=== PATIENT | male | born 1945 | race Caucasian/White ===

== ENCOUNTER 2018-03-03 22:14 | Inpatient (IN) ==
[2018-03-03] MEDS ORDERED: Pantoprazole Inj 40 MG Vial IV.PUSH ONE (23:02)
--- NOTE | 2018-03-03 23:03 | ED ---
HPI General Chief complaint: GI Bleed Stated complaint: Bloody Stool Time Seen by Provider: 03/03/18 22:57 History of Present Illness HPI Narrative: Patient is a 72-year-old male who suddenly today at 2 pm had a episode of dark melenic melena he says he felt abnormal in his upper GI area but no pain specifically a feeling of being too full. He has a history of renal failure in the past and he has needed Epogen shots as well as being transfused in the past due to low red cell production. Now he is recovered his kidney is no longer need erythropoietin to make red blood cells he is never had an endoscopy or he has had colonoscopies in the past that have a biopsy polyps that have been negative according to . He has not had a recent colonoscopy and he has no other complaints and never had rectal bleeding before in his life Protonix 40 IV push is given fluid he has a history of CHF he is on Lasix fluid recess is not appropriate for this patient this time and I would likely go to packed red blood cells sooner than later his initial H&H is 02/22 Related Data Home Medications Medication Instructions Recorded Confirmed apixaban [Eliquis] 5 mg PO BID 03/03/18 03/03/18 atorvastatin 40 mg PO DAILY 03/03/18 03/03/18 calcium carbonate-vitamin D3 600 mg PO DAILY 03/03/18 03/03/18 [Calcium 600 + D(3)] carvedilol [Coreg] 25 mg PO BID 03/03/18 03/03/18 clopidogrel [Plavix] 75 mg PO DAILY 03/03/18 03/03/18 gabapentin 300 mg PO TID 03/03/18 03/03/18 insulin aspart U-100 [Novolog 20 unit SUBCUT DAILY 03/03/18 03/03/18 U-100 Insulin aspart] insulin detemir U-100 [Levemir 70 unit SUBCUT TID 03/03/18 03/03/18 U-100 Insulin] magnesium oxide 400 mg PO BID 03/03/18 03/03/18 multivitamin 1 tab PO DAILY 03/03/18 03/03/18 omega 0-lta-cvr-fish oil [Fish Oil] 1,000 mg PO DAILY 03/03/18 03/03/18 potassium chloride 20 meq PO DAILY 10/06/18 10/06/18 Previous Rx's Medication Instructions Recorded furosemide [Lasix] 40 mg PO DAILY #30 tab 03/07/18 pantoprazole [Protonix] 40 mg PO BID #60 tab 03/07/18 sucralfate [Carafate] 1 g PO Q6H #120 tab 03/07/18 Allergies Allergy/AdvReac Type Severity Reaction Status Date / Time Penicillins Allergy unknown Verified 03/03/18 22:37 Review of Systems ROS: all other systems reviewed are negative Gastrointestinal Reports melena PMFSH Social History Social History Substance History: No History of Abuse Second Hand Smoke Exposure: No Smoking Status: Former smoker Tobacco Type: Cigarettes How Often Do You Have a Drink Containing Alcohol: Monthly or less Recent Travel in [facility] within the Last 8 Weeks: No Recent Out of Country Travel within the Last 8 Weeks: No Immunization History Tetanus Immunization: <5 Years Exam Narrative Exam Narrative: GENERAL: pt appears pale yellowish slightly diaphoretic SKIN: Warm and dry. slight pale diaphoretic HEAD: Atraumatic. Normocephalic. EYES: Pupils equal and round. No scleral icterus. No injection or drainage. ENT: No nasal bleeding or discharge. Mucous membranes pink and moist. NECK: Trachea midline. No JVD. CARDIOVASCULAR: Regular rate and rhythm. RESPIRATORY: No accessory muscle use. Clear to auscultation. Breath sounds equal bilaterally. GASTROINTESTINAL: Abdomen mild obese abdo no pain in epigasrum area ..., Hepatic and splenic margins not palpable. MUSCULOSKELETAL: Extremities without clubbing, cyanosis, or edema. No obvious deformities. NEUROLOGICAL: Awake and alert. No obvious cranial nerve deficits. Motor grossly within normal limits. Five out of 5 muscle strength in the arms and legs. Normal speech. PSYCHIATRIC: Appropriate mood and affect; insight and judgment normal. Course Initial Documented Vital Signs Temperature 98.0 F 03/03/18 22:24 Pulse Rate 80 03/03/18 22:24 Respiratory Rate 16 03/03/18 22:24 Blood Pressure 95/53 L 03/03/18 22:24 Pulse Oximetry 97 03/03/18 22:24 Last Documented Vital Signs Temperature 98.1 F 03/07/18 07:00 Pulse Rate 80 03/07/18 10:00 Respiratory Rate 18 03/07/18 10:00 Blood Pressure 145/68 H 03/07/18 10:00 Pulse Oximetry 98 03/07/18 10:00 Critical Care Time Critical Care Time: Yes Total Critical Care Time: 30 Attestation: blood and fluid resustiation and ICU admit CI consult spoke to ICU attending CHELY of GI hemorrhage Medical Decision Making MDM Narrative Medical decision making narrative: pt has 3 episodes of melena in ER and then after 500cc fluid still became HYPOTENSIVE DIAPHORETIC and then slightly altered . I decide to empirically treat ewith a UNIT of [facility] even though first Hgb was 9 , I feel too much NS with his CHF history it would be better to go to [facility] sooner. admit for GI intervention ICU Dr Zaragoza Medical Screen Exam Complete: Yes Emergency Medical Condition: Yes Differential Diagnosis Differential Diagnosis: GI bleed rapid transit upper gi bleed vs colonic polyp bleed vs AV malformation vs diverticular bleed PUD bleed other coagulpathy other Lab Data Result diagrams: 03/07/18 05:42 03/07/18 05:42 Lab Results 03/03/18 03/03/18 03/03/18 Range/Units 23:20 23:20 23:20 CBC w Diff Auto diff final WBC 8.7 (4.0-11.0) th/mm3 RBC 3.53 L (4.50-5.90) mil/mm3 Hgb 9.5 L (13.0-17.0) gm/dL Hct 27.8 L (39.0-51.0) % MCV 78.7 L (80.0-100.0) fL MCH 26.8 L (27.0-34.0) pg MCHC 34.1 (32.0-36.0) % RDW 14.0 (11.6-17.2) % Plt Count 158 (150-450) th/mm3 MPV 9.1 (7.0-11.0) fL Prelim Diff (Auto) Neut % (Auto) 82.3 H (16.0-70.0) % Lymph % (Auto) 7.6 L (9.0-44.0) % [place] % (Auto) 6.3 (0.0-8.0) % Eos % (Auto) 3.6 (0.0-4.0) % Baso % (Auto) 0.2 (0.0-2.0) % Neut # (Auto) 7.2 (1.8-7.7) th/mm3 Lymph # (Auto) 0.7 L (1.0-4.8) th/mm3 [place] # (Auto) 0.5 (0.0-0.9) th/mm3 Eos # (Auto) 0.3 (0.0-0.4) th/mm3 Baso # (Auto) 0.0 (0.0-0.2) th/mm3 WBC Differential . Diff Scan Differential Comment . Platelet Estimate (Normal) Platelet Morphology (Normal) Ovalocytes (None) PT (9.8-11.6) sec INR Ratio APTT (24.3-30.1) sec Fibrinogen (227-377) mg/dL Sodium 140 (136-145) meq/L Potassium 4.9 (3.5-5.1) meq/L Chloride 106 (98-107) meq/L Carbon Dioxide 25.8 (21.0-32.0) meq/L Anion Gap 8 (5-15) meq/L BUN 54 H (7-18) mg/dL Creatinine 1.70 H (0.60-1.30) mg/dL Estimated GFR 40 L (>89) mL/min POC Glucose (68-110) mg/dl Random Glucose 90 (74-106) mg/dL Lactic Acid (0.4-2.0) mmol/L Calcium 8.9 (8.5-10.1) mg/dL Magnesium (1.5-2.5) mg/dL Total Bilirubin 0.5 (0.2-1.0) mg/dL AST 29 (15-37) U/L ALT 34 (12-78) U/L Alkaline Phosphatase 66 (45-117) U/L Total Protein 6.3 L (6.4-8.2) g/dL Albumin 3.1 L (3.4-5.0) g/dL Nasal Screen MRSA (PCR) (Negative) Blood Type A Positive Blood Type Recheck Required Antibody Screen Negative MTS Gel Crossmatch 03/04/18 03/04/18 03/04/18 Range/Units 00:50 01:25 05:16 CBC w Diff Auto diff final WBC 9.2 7.0 (4.0-11.0) th/mm3 RBC 3.74 L 3.16 L (4.50-5.90) mil/mm3 Hgb 9.5 L 8.5 L (13.0-17.0) gm/dL Hct 29.9 L 25.1 L (39.0-51.0) % MCV 79.9 L 79.6 L (80.0-100.0) fL MCH 25.5 L 27.0 (27.0-34.0) pg MCHC 31.9 L 33.9 (32.0-36.0) % RDW 13.3 13.9 (11.6-17.2) % Plt Count 179 123 L D (150-450) th/mm3 MPV 8.8 9.6 (7.0-11.0) fL Prelim Diff (Auto) Neut % (Auto) 79.9 H (16.0-70.0) % Lymph % (Auto) 9.6 (9.0-44.0) % [place] % (Auto) 6.7 (0.0-8.0) % Eos % (Auto) 3.5 (0.0-4.0) % Baso % (Auto) 0.3 (0.0-2.0) % Neut # (Auto) 7.4 (1.8-7.7) th/mm3 Lymph # (Auto) 0.9 L (1.0-4.8) th/mm3 [place] # (Auto) 0.6 (0.0-0.9) th/mm3 Eos # (Auto) 0.3 (0.0-0.4) th/mm3 Baso # (Auto) 0.0 (0.0-0.2) th/mm3 WBC Differential . Diff Scan Differential Comment . Platelet Estimate (Normal) Platelet Morphology (Normal) Ovalocytes (None) PT (9.8-11.6) sec INR Ratio APTT (24.3-30.1) sec Fibrinogen (227-377) mg/dL Sodium (136-145) meq/L Potassium (3.5-5.1) meq/L Chloride (98-107) meq/L Carbon Dioxide (21.0-32.0) meq/L Anion Gap (5-15) meq/L BUN (7-18) mg/dL Creatinine (0.60-1.30) mg/dL Estimated GFR (>89) mL/min POC Glucose (68-110) mg/dl Random Glucose (74-106) mg/dL Lactic Acid (0.4-2.0) mmol/L Calcium (8.5-10.1) mg/dL Magnesium (1.5-2.5) mg/dL Total Bilirubin (0.2-1.0) mg/dL AST (15-37) U/L ALT (12-78) U/L Alkaline Phosphatase (45-117) U/L Total Protein (6.4-8.2) g/dL Albumin (3.4-5.0) g/dL Nasal Screen MRSA (PCR) (Negative) Blood Type Blood Type Recheck Antibody Screen MTS Gel Crossmatch See Detail 03/04/18 03/04/18 03/04/18 Range/Units 06:00 08:43 08:43 CBC w Diff WBC (4.0-11.0) th/mm3 RBC (4.50-5.90) mil/mm3 Hgb (13.0-17.0) gm/dL Hct (39.0-51.0) % MCV (80.0-100.0) fL MCH (27.0-34.0) pg MCHC (32.0-36.0) % RDW (11.6-17.2) % Plt Count (150-450) th/mm3 MPV (7.0-11.0) fL Prelim Diff (Auto) Neut % (Auto) (16.0-70.0) % Lymph % (Auto) (9.0-44.0) % [place] % (Auto) (0.0-8.0) % Eos % (Auto) (0.0-4.0) % Baso % (Auto) (0.0-2.0) % Neut # (Auto) (1.8-7.7) th/mm3 Lymph # (Auto) (1.0-4.8) th/mm3 [place] # (Auto) (0.0-0.9) th/mm3 Eos # (Auto) (0.0-0.4) th/mm3 Baso # (Auto) (0.0-0.2) th/mm3 WBC Differential Diff Scan Differential Comment Platelet Estimate (Normal) Platelet Morphology (Normal) Ovalocytes (None) PT 12.4 H (9.8-11.6) sec INR 1.2 Ratio APTT 26.4 (24.3-30.1) sec Fibrinogen 203 L (227-377) mg/dL Sodium (136-145) meq/L Potassium (3.5-5.1) meq/L Chloride (98-107) meq/L Carbon Dioxide (21.0-32.0) meq/L Anion Gap (5-15) meq/L BUN (7-18) mg/dL Creatinine (0.60-1.30) mg/dL Estimated GFR (>89) mL/min POC Glucose (68-110) mg/dl Random Glucose (74-106) mg/dL Lactic Acid 1.7 (0.4-2.0) mmol/L Calcium (8.5-10.1) mg/dL Magnesium (1.5-2.5) mg/dL Total Bilirubin (0.2-1.0) mg/dL AST (15-37) U/L ALT (12-78) U/L Alkaline Phosphatase (45-117) U/L Total Protein (6.4-8.2) g/dL Albumin (3.4-5.0) g/dL Nasal Screen MRSA (PCR) Not detected (Negative) Blood Type Blood Type Recheck Antibody Screen MTS Gel Crossmatch 03/04/18 03/04/18 03/04/18 Range/Units 08:45 11:52 13:17 CBC w Diff WBC (4.0-11.0) th/mm3 RBC (4.50-5.90) mil/mm3 Hgb 9.1 L (13.0-17.0) gm/dL Hct 27.6 L (39.0-51.0) % MCV (80.0-100.0) fL MCH (27.0-34.0) pg MCHC (32.0-36.0) % RDW (11.6-17.2) % Plt Count (150-450) th/mm3 MPV (7.0-11.0) fL Prelim Diff (Auto) Neut % (Auto) (16.0-70.0) % Lymph % (Auto) (9.0-44.0) % [place] % (Auto) (0.0-8.0) % Eos % (Auto) (0.0-4.0) % Baso % (Auto) (0.0-2.0) % Neut # (Auto) (1.8-7.7) th/mm3 Lymph # (Auto) (1.0-4.8) th/mm3 [place] # (Auto) (0.0-0.9) th/mm3 Eos # (Auto) (0.0-0.4) th/mm3 Baso # (Auto) (0.0-0.2) th/mm3 WBC Differential Diff Scan Differential Comment Platelet Estimate (Normal) Platelet Morphology (Normal) Ovalocytes (None) PT (9.8-11.6) sec INR Ratio APTT (24.3-30.1) sec Fibrinogen (227-377) mg/dL Sodium (136-145) meq/L Potassium (3.5-5.1) meq/L Chloride (98-107) meq/L Carbon Dioxide (21.0-32.0) meq/L Anion Gap (5-15) meq/L BUN (7-18) mg/dL Creatinine (0.60-1.30) mg/dL Estimated GFR (>89) mL/min POC Glucose 236 H (68-110) mg/dl Random Glucose (74-106) mg/dL Lactic Acid (0.4-2.0) mmol/L Calcium (8.5-10.1) mg/dL Magnesium (1.5-2.5) mg/dL Total Bilirubin (0.2-1.0) mg/dL AST (15-37) U/L ALT (12-78) U/L Alkaline Phosphatase (45-117) U/L Total Protein (6.4-8.2) g/dL Albumin (3.4-5.0) g/dL Nasal Screen MRSA (PCR) (Negative) Blood Type Blood Type Recheck Antibody Screen MTS Gel Crossmatch See Detail 03/04/18 03/04/18 03/04/18 Range/Units 17:43 17:44 23:19 CBC w Diff WBC (4.0-11.0) th/mm3 RBC (4.50-5.90) mil/mm3 Hgb 8.7 L 8.2 L (13.0-17.0) gm/dL Hct 26.0 L 25.3 L (39.0-51.0) % MCV (80.0-100.0) fL MCH (27.0-34.0) pg MCHC (32.0-36.0) % RDW (11.6-17.2) % Plt Count (150-450) th/mm3 MPV (7.0-11.0) fL Prelim Diff (Auto) Neut % (Auto) (16.0-70.0) % Lymph % (Auto) (9.0-44.0) % [place] % (Auto) (0.0-8.0) % Eos % (Auto) (0.0-4.0) % Baso % (Auto) (0.0-2.0) % Neut # (Auto) (1.8-7.7) th/mm3 Lymph # (Auto) (1.0-4.8) th/mm3 [place] # (Auto) (0.0-0.9) th/mm3 Eos # (Auto) (0.0-0.4) th/mm3 Baso # (Auto) (0.0-0.2) th/mm3 WBC Differential Diff Scan Differential Comment Platelet Estimate (Normal) Platelet Morphology (Normal) Ovalocytes (None) PT (9.8-11.6) sec INR Ratio APTT (24.3-30.1) sec Fibrinogen (227-377) mg/dL Sodium (136-145) meq/L Potassium (3.5-5.1) meq/L Chloride (98-107) meq/L Carbon Dioxide (21.0-32.0) meq/L Anion Gap (5-15) meq/L BUN (7-18) mg/dL Creatinine (0.60-1.30) mg/dL Estimated GFR (>89) mL/min POC Glucose 258 H (68-110) mg/dl Random Glucose (74-106) mg/dL Lactic Acid (0.4-2.0) mmol/L Calcium (8.5-10.1) mg/dL Magnesium (1.5-2.5) mg/dL Total Bilirubin (0.2-1.0) mg/dL AST (15-37) U/L ALT (12-78) U/L Alkaline Phosphatase (45-117) U/L Total Protein (6.4-8.2) g/dL Albumin (3.4-5.0) g/dL Nasal Screen MRSA (PCR) (Negative) Blood Type Blood Type Recheck Antibody Screen MTS Gel Crossmatch 03/05/18 03/05/18 03/05/18 Range/Units 00:11 05:38 08:47 CBC w Diff WBC 6.0 (4.0-11.0) th/mm3 RBC 2.98 L (4.50-5.90) mil/mm3 Hgb 8.0 L (13.0-17.0) gm/dL Hct 24.1 L (39.0-51.0) % MCV 80.8 (80.0-100.0) fL MCH 26.8 L (27.0-34.0) pg MCHC 33.2 (32.0-36.0) % RDW 14.6 (11.6-17.2) % Plt Count 96 L (150-450) th/mm3 MPV 8.5 (7.0-11.0) fL Prelim Diff (Auto) Slide review pending Neut % (Auto) 77.7 H (16.0-70.0) % Lymph % (Auto) 9.8 (9.0-44.0) % [place] % (Auto) 9.0 H (0.0-8.0) % Eos % (Auto) 3.0 (0.0-4.0) % Baso % (Auto) 0.5 (0.0-2.0) % Neut # (Auto) 4.7 (1.8-7.7) th/mm3 Lymph # (Auto) 0.6 L (1.0-4.8) th/mm3 [place] # (Auto) 0.5 (0.0-0.9) th/mm3 Eos # (Auto) 0.2 (0.0-0.4) th/mm3 Baso # (Auto) 0.0 (0.0-0.2) th/mm3 WBC Differential . Diff Scan Auto diff confirmed Differential Comment . Platelet Estimate Low L (Normal) Platelet Morphology Normal (Normal) Ovalocytes (None) PT (9.8-11.6) sec INR Ratio APTT (24.3-30.1) sec Fibrinogen (227-377) mg/dL Sodium (136-145) meq/L Potassium (3.5-5.1) meq/L Chloride (98-107) meq/L Carbon Dioxide (21.0-32.0) meq/L Anion Gap (5-15) meq/L BUN (7-18) mg/dL Creatinine (0.60-1.30) mg/dL Estimated GFR (>89) mL/min POC Glucose 274 H 279 H (68-110) mg/dl Random Glucose (74-106) mg/dL Lactic Acid (0.4-2.0) mmol/L Calcium (8.5-10.1) mg/dL Magnesium (1.5-2.5) mg/dL Total Bilirubin (0.2-1.0) mg/dL AST (15-37) U/L ALT (12-78) U/L Alkaline Phosphatase (45-117) U/L Total Protein (6.4-8.2) g/dL Albumin (3.4-5.0) g/dL Nasal Screen MRSA (PCR) (Negative) Blood Type Blood Type Recheck Antibody Screen MTS Gel Crossmatch 03/05/18 03/05/18 03/05/18 Range/Units 08:47 12:27 15:03 CBC w Diff WBC (4.0-11.0) th/mm3 RBC (4.50-5.90) mil/mm3 Hgb 7.9 L (13.0-17.0) gm/dL Hct 23.9 L (39.0-51.0) % MCV (80.0-100.0) fL MCH (27.0-34.0) pg MCHC (32.0-36.0) % RDW (11.6-17.2) % Plt Count (150-450) th/mm3 MPV (7.0-11.0) fL Prelim Diff (Auto) Neut % (Auto) (16.0-70.0) % Lymph % (Auto) (9.0-44.0) % [place] % (Auto) (0.0-8.0) % Eos % (Auto) (0.0-4.0) % Baso % (Auto) (0.0-2.0) % Neut # (Auto) (1.8-7.7) th/mm3 Lymph # (Auto) (1.0-4.8) th/mm3 [place] # (Auto) (0.0-0.9) th/mm3 Eos # (Auto) (0.0-0.4) th/mm3 Baso # (Auto) (0.0-0.2) th/mm3 WBC Differential Diff Scan Differential Comment Platelet Estimate (Normal) Platelet Morphology (Normal) Ovalocytes (None) PT (9.8-11.6) sec INR Ratio APTT (24.3-30.1) sec Fibrinogen (227-377) mg/dL Sodium 146 H (136-145) meq/L Potassium 4.4 (3.5-5.1) meq/L Chloride 112 H (98-107) meq/L Carbon Dioxide 23.9 (21.0-32.0) meq/L Anion Gap 10 (5-15) meq/L BUN 57 H (7-18) mg/dL Creatinine 1.42 H (0.60-1.30) mg/dL Estimated GFR 49 L (>89) mL/min POC Glucose 309 H (68-110) mg/dl Random Glucose 277 H D (74-106) mg/dL Lactic Acid (0.4-2.0) mmol/L Calcium 8.7 (8.5-10.1) mg/dL Magnesium 2.3 (1.5-2.5) mg/dL Total Bilirubin 1.0 (0.2-1.0) mg/dL AST 30 (15-37) U/L ALT 29 (12-78) U/L Alkaline Phosphatase 52 (45-117) U/L Total Protein 5.8 L (6.4-8.2) g/dL Albumin 2.8 L (3.4-5.0) g/dL Nasal Screen MRSA (PCR) (Negative) Blood Type Blood Type Recheck Antibody Screen MTS Gel Crossmatch 03/05/18 03/05/18 03/06/18 Range/Units 16:14 17:15 01:11 CBC w Diff WBC (4.0-11.0) th/mm3 RBC (4.50-5.90) mil/mm3 Hgb (13.0-17.0) gm/dL Hct (39.0-51.0) % MCV (80.0-100.0) fL MCH (27.0-34.0) pg MCHC (32.0-36.0) % RDW (11.6-17.2) % Plt Count (150-450) th/mm3 MPV (7.0-11.0) fL Prelim Diff (Auto) Neut % (Auto) (16.0-70.0) % Lymph % (Auto) (9.0-44.0) % [place] % (Auto) (0.0-8.0) % Eos % (Auto) (0.0-4.0) % Baso % (Auto) (0.0-2.0) % Neut # (Auto) (1.8-7.7) th/mm3 Lymph # (Auto) (1.0-4.8) th/mm3 [place] # (Auto) (0.0-0.9) th/mm3 Eos # (Auto) (0.0-0.4) th/mm3 Baso # (Auto) (0.0-0.2) th/mm3 WBC Differential Diff Scan Differential Comment Platelet Estimate (Normal) Platelet Morphology (Normal) Ovalocytes (None) PT (9.8-11.6) sec INR Ratio APTT (24.3-30.1) sec Fibrinogen (227-377) mg/dL Sodium (136-145) meq/L Potassium (3.5-5.1) meq/L Chloride (98-107) meq/L Carbon Dioxide (21.0-32.0) meq/L Anion Gap (5-15) meq/L BUN (7-18) mg/dL Creatinine (0.60-1.30) mg/dL Estimated GFR (>89) mL/min POC Glucose 283 H 272 H (68-110) mg/dl Random Glucose (74-106) mg/dL Lactic Acid (0.4-2.0) mmol/L Calcium (8.5-10.1) mg/dL Magnesium (1.5-2.5) mg/dL Total Bilirubin (0.2-1.0) mg/dL AST (15-37) U/L ALT (12-78) U/L Alkaline Phosphatase (45-117) U/L Total Protein (6.4-8.2) g/dL Albumin (3.4-5.0) g/dL Nasal Screen MRSA (PCR) (Negative) Blood Type Blood Type Recheck Antibody Screen MTS Gel Crossmatch See Detail 03/06/18 03/06/18 03/06/18 Range/Units 07:00 07:00 07:15 CBC w Diff WBC 3.5 L (4.0-11.0) th/mm3 RBC 3.11 L (4.50-5.90) mil/mm3 Hgb 8.4 L (13.0-17.0) gm/dL Hct 25.9 L (39.0-51.0) % MCV 83.1 (80.0-100.0) fL MCH 27.0 (27.0-34.0) pg MCHC 32.5 (32.0-36.0) % RDW 14.8 (11.6-17.2) % Plt Count 80 L (150-450) th/mm3 MPV 8.7 (7.0-11.0) fL Prelim Diff (Auto) Slide review pending Neut % (Auto) 69.2 (16.0-70.0) % Lymph % (Auto) 15.1 (9.0-44.0) % [place] % (Auto) 9.2 H (0.0-8.0) % Eos % (Auto) 6.1 H (0.0-4.0) % Baso % (Auto) 0.4 (0.0-2.0) % Neut # (Auto) 2.4 (1.8-7.7) th/mm3 Lymph # (Auto) 0.5 L (1.0-4.8) th/mm3 [place] # (Auto) 0.3 (0.0-0.9) th/mm3 Eos # (Auto) 0.2 (0.0-0.4) th/mm3 Baso # (Auto) 0.0 (0.0-0.2) th/mm3 WBC Differential . Diff Scan Auto diff confirmed Differential Comment . Platelet Estimate Low L (Normal) Platelet Morphology Normal (Normal) Ovalocytes 1+ H (None) PT (9.8-11.6) sec INR Ratio APTT (24.3-30.1) sec Fibrinogen (227-377) mg/dL Sodium 149 H (136-145) meq/L Potassium 4.0 (3.5-5.1) meq/L Chloride 115 H (98-107) meq/L Carbon Dioxide 26.8 (21.0-32.0) meq/L Anion Gap 7 (5-15) meq/L BUN 35 H (7-18) mg/dL Creatinine 1.24 (0.60-1.30) mg/dL Estimated GFR 57 L (>89) mL/min POC Glucose 250 H (68-110) mg/dl Random Glucose 220 H (74-106) mg/dL Lactic Acid (0.4-2.0) mmol/L Calcium 8.6 (8.5-10.1) mg/dL Magnesium 2.4 (1.5-2.5) mg/dL Total Bilirubin 0.9 (0.2-1.0) mg/dL AST 31 (15-37) U/L ALT 31 (12-78) U/L Alkaline Phosphatase 57 (45-117) U/L Total Protein 5.7 L (6.4-8.2) g/dL Albumin 2.7 L (3.4-5.0) g/dL Nasal Screen MRSA (PCR) (Negative) Blood Type Blood Type Recheck Antibody Screen MTS Gel Crossmatch 03/06/18 03/06/18 03/06/18 Range/Units 13:23 17:15 23:13 CBC w Diff WBC (4.0-11.0) th/mm3 RBC (4.50-5.90) mil/mm3 Hgb (13.0-17.0) gm/dL Hct (39.0-51.0) % MCV (80.0-100.0) fL MCH (27.0-34.0) pg MCHC (32.0-36.0) % RDW (11.6-17.2) % Plt Count (150-450) th/mm3 MPV (7.0-11.0) fL Prelim Diff (Auto) Neut % (Auto) (16.0-70.0) % Lymph % (Auto) (9.0-44.0) % [place] % (Auto) (0.0-8.0) % Eos % (Auto) (0.0-4.0) % Baso % (Auto) (0.0-2.0) % Neut # (Auto) (1.8-7.7) th/mm3 Lymph # (Auto) (1.0-4.8) th/mm3 [place] # (Auto) (0.0-0.9) th/mm3 Eos # (Auto) (0.0-0.4) th/mm3 Baso # (Auto) (0.0-0.2) th/mm3 WBC Differential Diff Scan Differential Comment Platelet Estimate (Normal) Platelet Morphology (Normal) Ovalocytes (None) PT (9.8-11.6) sec INR Ratio APTT (24.3-30.1) sec Fibrinogen (227-377) mg/dL Sodium (136-145) meq/L Potassium (3.5-5.1) meq/L Chloride (98-107) meq/L Carbon Dioxide (21.0-32.0) meq/L Anion Gap (5-15) meq/L BUN (7-18) mg/dL Creatinine (0.60-1.30) mg/dL Estimated GFR (>89) mL/min POC Glucose 372 H 335 H 298 H (68-110) mg/dl Random Glucose (74-106) mg/dL Lactic Acid (0.4-2.0) mmol/L Calcium (8.5-10.1) mg/dL Magnesium (1.5-2.5) mg/dL Total Bilirubin (0.2-1.0) mg/dL AST (15-37) U/L ALT (12-78) U/L Alkaline Phosphatase (45-117) U/L Total Protein (6.4-8.2) g/dL Albumin (3.4-5.0) g/dL Nasal Screen MRSA (PCR) (Negative) Blood Type Blood Type Recheck Antibody Screen MTS Gel Crossmatch 03/07/18 03/07/18 03/07/18 Range/Units 05:27 05:42 05:42 CBC w Diff WBC 3.4 L (4.0-11.0) th/mm3 RBC 3.02 L (4.50-5.90) mil/mm3 Hgb 8.2 L (13.0-17.0) gm/dL Hct 24.8 L (39.0-51.0) % MCV 82.1 (80.0-100.0) fL MCH 27.1 (27.0-34.0) pg MCHC 33.0 (32.0-36.0) % RDW 14.3 (11.6-17.2) % Plt Count 79 L (150-450) th/mm3 MPV 8.8 (7.0-11.0) fL Prelim Diff (Auto) Slide review pending Neut % (Auto) 70.9 H (16.0-70.0) % Lymph % (Auto) 14.2 (9.0-44.0) % [place] % (Auto) 8.0 (0.0-8.0) % Eos % (Auto) 6.5 H (0.0-4.0) % Baso % (Auto) 0.4 (0.0-2.0) % Neut # (Auto) 2.4 (1.8-7.7) th/mm3 Lymph # (Auto) 0.5 L (1.0-4.8) th/mm3 [place] # (Auto) 0.3 (0.0-0.9) th/mm3 Eos # (Auto) 0.2 (0.0-0.4) th/mm3 Baso # (Auto) 0.0 (0.0-0.2) th/mm3 WBC Differential . Diff Scan Auto diff confirmed Differential Comment . Platelet Estimate (Normal) Platelet Morphology (Normal) Ovalocytes 1+ H (None) PT (9.8-11.6) sec INR Ratio APTT (24.3-30.1) sec Fibrinogen (227-377) mg/dL Sodium 147 H (136-145) meq/L Potassium 3.8 (3.5-5.1) meq/L Chloride 110 H (98-107) meq/L Carbon Dioxide 26.6 (21.0-32.0) meq/L Anion Gap 10 (5-15) meq/L BUN 25 H (7-18) mg/dL Creatinine 1.20 (0.60-1.30) mg/dL Estimated GFR 60 L (>89) mL/min POC Glucose 276 H (68-110) mg/dl Random Glucose 241 H (74-106) mg/dL Lactic Acid (0.4-2.0) mmol/L Calcium 8.6 (8.5-10.1) mg/dL Magnesium 2.3 (1.5-2.5) mg/dL Total Bilirubin 0.7 (0.2-1.0) mg/dL AST 32 (15-37) U/L ALT 34 (12-78) U/L Alkaline Phosphatase 58 (45-117) U/L Total Protein 5.8 L (6.4-8.2) g/dL Albumin 2.7 L (3.4-5.0) g/dL Nasal Screen MRSA (PCR) (Negative) Blood Type Blood Type Recheck Antibody Screen MTS Gel Crossmatch Discharge Plan Discharge Disposition Patient Disposition: 01 Discharge Home Discharge Condition Condition: Stable Discharge Order Discharge Orders: Discharge Order (Routine); Ordered 03/07/18 Ordered By: Nav Jennings Discharge Details Anticipated Discharge Date: 03/07/18 Discharge Comment: Follow up with PCP in three days Follow up with GI specialist Doctor Cassy Polanco in two weeks. Physicians Team ED Provider: Saul Gilbert Primary Care Provider: Fadia Huang Attending Provider: Nav Jennings Other Providers: Cassy Polanco ; [employer] Status ED Status: Left Department Discharge Information Discharge Date/Time: 03/04/18 05:27
[2018-03-03 23:34] LABS: Baso % (Auto) 0.2 % (0.0-2.0); Eos # (Auto) 0.3 th/mm3 (0.0-0.4); Eos % (Auto) 3.6 % (0.0-4.0); Hematocrit 27.8 % (39.0-51.0); Hemoglobin 9.5 gm/dL (13.0-17.0); Lymph # (Auto) 0.7 th/mm3 (1.0-4.8); Lymph % (Auto) 7.6 % (9.0-44.0); Mean Corpuscular HGB Conc 34.1 % (32.0-36.0); Mean Corpuscular Hemoglobin 26.8 pg (27.0-34.0); Mean Corpuscular Volume 78.7 fL (80.0-100.0); Mean Platelet Volume 9.1 fL (7.0-11.0); Mono # (Auto) 0.5 th/mm3 (0.0-0.9); Mono % (Auto) 6.3 % (0.0-8.0); Neut # (Auto) 7.2 th/mm3 (1.8-7.7); Neut % (Auto) 82.3 % (16.0-70.0); Platelet Count 158 th/mm3 (150-450); Red Blood Count 3.53 mil/mm3 (4.50-5.90); White Blood Count 8.7 th/mm3 (4.0-11.0)
[2018-03-03 23:40] LABS: Chloride 106 meq/L (98-107); Potassium 4.9 meq/L (3.5-5.1); Sodium 140 meq/L (136-145)
[2018-03-03 23:43] LABS: Albumin 3.1 g/dL (3.4-5.0); Anion Gap 8 meq/L (5-15); Blood Urea Nitrogen 54 mg/dL (7-18); Calcium 8.9 mg/dL (8.5-10.1); Carbon Dioxide 25.8 meq/L (21.0-32.0); Glucose,Random 90 mg/dL (74-106)
[2018-03-03 23:46] LABS: Alanine Aminotransferase 34 U/L (12-78); Aspartate Aminotransferase 29 U/L (15-37); Glomerular Filtration Rate 40 mL/min (>89)
[2018-03-03 23:48] LABS: Total Protein 6.3 g/dL (6.4-8.2)
[2018-03-03 23:49] LABS: Alkaline Phosphatase 66 U/L (45-117)
[2018-03-04 01:02] LABS: Baso % (Auto) 0.3 % (0.0-2.0); Eos # (Auto) 0.3 th/mm3 (0.0-0.4); Eos % (Auto) 3.5 % (0.0-4.0); Hematocrit 29.9 % (39.0-51.0); Hemoglobin 9.5 gm/dL (13.0-17.0); Lymph # (Auto) 0.9 th/mm3 (1.0-4.8); Lymph % (Auto) 9.6 % (9.0-44.0); Mean Corpuscular HGB Conc 31.9 % (32.0-36.0); Mean Corpuscular Hemoglobin 25.5 pg (27.0-34.0); Mean Corpuscular Volume 79.9 fL (80.0-100.0); Mean Platelet Volume 8.8 fL (7.0-11.0); Mono # (Auto) 0.6 th/mm3 (0.0-0.9); Mono % (Auto) 6.7 % (0.0-8.0); Neut # (Auto) 7.4 th/mm3 (1.8-7.7); Neut % (Auto) 79.9 % (16.0-70.0); Platelet Count 179 th/mm3 (150-450); Red Blood Count 3.74 mil/mm3 (4.50-5.90); Red Cell Distribution Width 13.3 % (11.6-17.2); White Blood Count 9.2 th/mm3 (4.0-11.0)
[2018-03-04] MEDS ORDERED: Sodium Chlor 0.9% Inj 500 ML IV.SIG ONE (01:09)
[2018-03-04] MEDS ORDERED: Morphine Sulfate Inj 2 MG/ML Vial IV.PUSH PRN (01:21)
[2018-03-04] MEDS ORDERED: Temazepam 15 MG Capsule PO PRN (01:21)
[2018-03-04] MEDS ORDERED: Acetaminophen 325 MG Tablet PO PRN (01:21)
[2018-03-04] MEDS ORDERED: Bisacodyl 10 MG Supp RECTAL PRN (01:21)
[2018-03-04] MEDS ORDERED: Dextrose 50% in Water 50 ML Vial IV.PUSH PRN (01:28)
[2018-03-04] MEDS ORDERED: Desmopressin Inj 20 MCG in Sodium Chlor 0.9% Inj 50 ML IV.SIG ONE (01:30)
[2018-03-04] MEDS ORDERED: Sodium Chlor 0.9% Inj 250 ML IV.SIG SCH (02:00)
[2018-03-04] MEDS ORDERED: Chlorhexidine Gluconate 2% 1 Pack (2 Cloths) TOPICAL PRN (04:00)
[2018-03-04 05:30] LABS: Hematocrit 25.1 % (39.0-51.0); Hemoglobin 8.5 gm/dL (13.0-17.0); Mean Corpuscular HGB Conc 33.9 % (32.0-36.0); Mean Corpuscular Volume 79.6 fL (80.0-100.0); Mean Platelet Volume 9.6 fL (7.0-11.0); Platelet Count 123 th/mm3 (150-450); Red Blood Count 3.16 mil/mm3 (4.50-5.90); Red Cell Distribution Width 13.9 % (11.6-17.2)
[2018-03-04] MEDS: Sod Chloride 0.9% Inj 1,000 ML IV.CONT SCH ×2 (06:12→21:07)
[2018-03-04] MEDS ORDERED: PROTHROMBIN COMPLEX IV.SIG ONE (08:22)
--- NOTE | 2018-03-04 08:33 | P.HPCC ---
History of Present Illness Service: Critical Care Medicine Primary Care Physician: Fadia Huang MD History of Present Illness: 72yM with history of prior kidney failure of unknown etiology who presented with sudden onset fatigue and 2 dark tarry bowel movements. found to be anemic, hypotensive, tachycardic in the ER. given 1 unit prbc. denies abd, n/v. denies fever, chills, chest pain, shortness of breath. takes eliquis for h/o afib. no h /o NSAID use. Inpatient Certification: I certify that the inpatient services were ordered in accordance with Medicare regulations governing the order. This includes certification that hospital inpatient services are reasonable and necessary and in the case of services not specified as inpatient-only under 42 CFR 419.22(n), that they are appropriately provided as inpatient services in accordance to with the 2-midnight benchmark under 43 CFR 412.3(e) Estimated Total Length of Stay (Days): 5 Plans for Post Hospital Care: Not yet determined Review of Systems All other systems reviewed negative except as stated in HPI [facility] - History History Provided By: Patient, Family Member, Medical Record - Medical History Medical History: Medical History (Last Reviewed 03/04/18 @ 08:17 by Dylan Hook MD) A-fib CAD (coronary artery disease) CHF (congestive heart failure) Diabetes Kidney failure Pacemaker - Surgical History Surgical History: Surgical History (Last Reviewed 03/04/18 @ 08:17 by Dylan Hook MD) H/O heart artery stent Hx of cholecystectomy Hx of tonsillectomy S/P ablation of atrial fibrillation - Social History I have reviewed the patient's Social History: Yes - Tobacco History Second Hand Smoke Exposure: No Tobacco Use In Past 30 Days: No Smoking Status: Former smoker Tobacco Type: Cigarettes - Alcohol History How Often Do You Have a Drink Containing Alcohol: Monthly or less - Substance Use History Substance History: No History of Abuse - Travel History Recent Travel in the [place] Within the Last 8 Weeks: No Recent Travel Out of the Country Within the Last 8 Weeks: No - Immunization History Tetanus Immunization: <5 Years Medications and Allergies Active Medications: Active Medications Acetaminophen (Tylenol) 650 mg PO Q6H PRN PRN Reason: PAIN 1-10 AND/OR FEVER >101F Al Hydroxide/Mg Hydroxide (Milk Of Magnesia Liq) 30 ml PO Q12H PRN PRN Reason: Mild Constipation Albuterol (Duoneb Neb (Prn)) 1 ampul NEB Q2HR NEB PRN PRN Reason: WHEEZING Atorvastatin Calcium (Lipitor) 40 mg PO DAILY [facility] Bisacodyl (Dulcolax Supp) 10 mg RECTAL DAILY PRN PRN Reason: SEVERE CONSITIPATION Calcium/Vitamin D (Oscal With D 250/125 Mg) 2 tab PO DAILY [facility] Carvedilol (Coreg) 25 mg PO BID [facility] Chlorhexidine Gluconate (Chlorhexidine 2% Cloth) 3 pack TOPICAL DAILY@0400 [place] Stop: 03/09/18 03:59 Chlorhexidine Gluconate (Chlorhexidine 2% Cloth) 3 pack TOPICAL DAILY@0400 PRN PRN Reason: Extra cloth needed Stop: 03/09/18 03:59 Dextrose (D50w Vial) 50 ml IV.PUSH UNSCH PRN PRN Reason: PER HYPOGLYCEMIA PROTOCOL Furosemide (Lasix) 80 mg PO DAILY [facility] Gabapentin (Neurontin) 300 mg PO TID [facility] Glucagon (Glucagon Inj) 1 mg OTHER PRN PRN PRN Reason: for Hypoglycemia Protocol Sodium Chloride (Ns Inj) 250 mls @ 15 mls/hr IV.SIG ONCE [place] Stop: 03/04/18 18:39 Sodium Chloride (Ns Inj) 1,000 mls @ 84 mls/hr IV.CONT .[id number] [facility] Last Admin: 03/04/18 06:12 Dose: 84 mls/hr Insulin Aspart (Novolog Insulin Correctional Sugar Inj) 0 unit SQ Q6HR [facility]; Protocol Lactulose (Lactulose Liq) 30 ml PO DAILY PRN PRN Reason: SEVERE CONSITIPATION Magnesium Oxide (Mag-Ox) 400 mg PO BID [facility] Morphine Sulfate (Morphine Inj) 2 mg IV.PUSH Q2H PRN PRN Reason: PAIN SCALE 6 TO 10 Multivitamins (Theragran) 1 tab PO DAILY [facility] Ondansetron HCl (Zofran Inj) 4 mg IV.PUSH Q6H PRN PRN Reason: NAUSEA OR VOMITING Pantoprazole Sodium (Protonix Inj) 40 mg IV.PUSH Q12H [place] Senna/Docusate Sodium (Caron-Colace) 1 tab PO BID [facility] Sennosides (Senokot) 17.2 mg PO Q12H PRN PRN Reason: Moderate Constipation Sodium Chloride (Ns Flush) 2 ml IV.FLUSH BID [place] Sodium Chloride (Ns Flush) 2 ml IV.FLUSH PRN PRN PRN Reason: FLUSH AFTER USING IV ACCESS Temazepam (Restoril) 15 mg PO HS PRN PRN Reason: INSOMNIA Allergies Allergy/AdvReac Type Severity Reaction Status Date / Time Penicillins Allergy unknown Verified 03/03/18 22:37 Home Medications Medication Instructions Recorded Confirmed Type apixaban [Eliquis] 5 mg PO BID 03/03/18 03/03/18 History atorvastatin 40 mg PO DAILY 03/03/18 03/03/18 History calcium carbonate-vitamin D3 600 mg PO DAILY 03/03/18 03/03/18 History [Calcium 600 + D(3)] carvedilol [Coreg] 25 mg PO BID 03/03/18 03/03/18 History clopidogrel [Plavix] 75 mg PO DAILY 03/03/18 03/03/18 History furosemide 80 mg PO DAILY 03/03/18 03/03/18 History gabapentin 300 mg PO TID 03/03/18 03/03/18 History insulin aspart U-100 [Novolog 20 unit SUBCUT DAILY 03/03/18 03/03/18 History U-100 Insulin aspart] insulin detemir U-100 [Levemir 70 unit SUBCUT TID 03/03/18 03/03/18 History U-100 Insulin] magnesium oxide 400 mg PO BID 03/03/18 03/03/18 History multivitamin 1 tab PO DAILY 03/03/18 03/03/18 History omega 1-wnl-ium-fish oil [Fish Oil] 1,000 mg PO DAILY 03/03/18 03/03/18 History pantoprazole [Protonix] 40 mg PO DAILY 03/03/18 03/03/18 History potassium chloride 20 meq PO DAILY 03/03/18 03/03/18 History sacubitril-valsartan [Entresto] 1 tab PO BID 03/03/18 03/03/18 History Results - Labs CBC & Chem 7: 03/04/18 05:16 03/03/18 23:20 Labs: Short CBC 03/03/18 03/04/18 03/04/18 Range/Units 23:20 00:50 05:16 WBC 8.7 9.2 7.0 (4.0-11.0) th/mm3 Hgb 9.5 L 9.5 L 8.5 L (13.0-17.0) gm/dL Hct 27.8 L 29.9 L 25.1 L (39.0-51.0) % Plt Count 158 179 123 L D (150-450) th/mm3 BMP 03/03/18 23:20 Sodium 140 Potassium 4.9 Chloride 106 Carbon Dioxide 25.8 BUN 54 H Creatinine 1.70 H Calcium 8.9 Liver Function 03/03/18 Range/Units 23:20 Total Bilirubin 0.5 (0.2-1.0) mg/dL AST 29 (15-37) U/L ALT 34 (12-78) U/L Alkaline Phosphatase 66 (45-117) U/L Albumin 3.1 L (3.4-5.0) g/dL Exam Vital signs: Vital Signs 03/03/18 22:24 03/04/18 01:22 03/04/18 01:40 Temperature 36.7 C 36.5 C 36.5 C Pulse Rate 80 80 80 Respiratory Rate 16 16 15 Blood Pressure 95/53 L 84/59 L 115/71 Pulse Oximetry 97 99 100 03/04/18 02:16 03/04/18 02:31 03/04/18 05:25 Temperature 36.5 C Pulse Rate 80 80 80 Respiratory Rate 16 15 16 Blood Pressure 123/68 113/56 L 97/47 L Pulse Oximetry 100 99 100 Intake & Output 03/03/18 03/04/18 03/04/18 18:59 06:59 18:59 Intake Total 450 / 450 Balance 450 / 450 Weight 122.7 kg Intake: Other 50 / 50 Rbc As-3 Leukoreduced Unit 50 / 50 [id number] Intake (Blood Product) Amt 400 / 400 Rbc As-3 Leukoreduced Unit 400 / 400 [id number] Other: Weight On Admission 122.7 kg Narrative: GENERAL: Elderly male, lying in bed, in mild distress HEENT: Normocephalic. Atraumatic. Pupils equal, round, reactive, conjugate. Mucous membranes are moist NECK: Trachea is midline. There is no JVD. CHEST: Mildly tachypneic. Equal chest rise. Nasal cannula oxygen. CARDIOVASCULAR: Normal rate, regular rhythm. Borderline hypotensive with systolic blood pressure 97. ABDOMEN: Soft, nontender, nondistended. No guarding. MUSCULOSKELETAL: Pulses 2+. No peripheral edema. NEUROLOGICAL: RASS 0. CAM -. Follows commands in all 4 extremities. Caprini VTE Risk Assessment Caprini VTE Risk Assessment: Moderate/High Risk (score >= 2) VTE Pharmacological Exception Reason: Hemorrhage Caprini Risk Assessment Model: Point Value = 1 Point Value = 2 Point Value = 3 Point Value = 5 Age 41-60 Minor surgery BMI > 25 kg/m2 Swollen legs Varicose veins or History of unexplained or recurrent spontaneous Oral contraceptives or hormone replacement Sepsis (< 1 month) Serious lung disease, including pneumonia (< 1 month) Abnormal pulmonary function Acute myocardial infarction Congestive heart failure (< 1 month) History of inflammatory bowel disease Medical patient at bed rest Age 61-74 Arthroscopic surgery Major open surgery (> 45 min) Laparoscopic surgery (> 45 min) Malignancy Confined to bed (> 72 hours) Immobilizing plaster cast Central venous access Age >= 75 History of VTE Family history of VTE Factor V Leiden Prothrombin [id number] Lupus anticoagulant Anticardiolipin antibodies Elevated serum homocysteine Heparin-induced thrombocytopenia Other congenital or acquired thrombophilia Stroke (< 1 month) Elective arthroplasty Hip, pelvis, or leg fracture Acute spinal cord injury (< 1 month) Prophylaxis Regimen: Total Risk Factor Score Risk Level Prophylaxis Regimen 0-1 Low Early ambulation 2 Moderate Order ONE of the following: *Sequential Compression Device (SCD) *Heparin 5000 units SQ BID 3-4 Higher Order ONE of the following medications: *Heparin 5000 units SQ TID *Enoxaparin/Lovenox 40 mg SQ daily (WT < 150 kg, CrCl > 30 mL/min) *Enoxaparin/Lovenox 30 mg SQ daily (WT < 150 kg, CrCl > 10-29 mL/min) *Enoxaparin/Lovenox 30 mg SQ BID (WT < 150 kg, CrCl > 30 mL/min) AND/OR *Sequential Compression Device (SCD) 5 or more Highest Order ONE of the following medications: *Heparin 5000 units SQ TID (Preferred with Epidurals) *Enoxaparin/Lovenox 40 mg SQ daily (WT < 150 kg, CrCl > 30 mL/min) *Enoxaparin/Lovenox 30 mg SQ daily (WT < 150 kg, CrCl > 10-29 mL/min) *Enoxaparin/Lovenox 30 mg SQ BID (WT < 150 kg, CrCl > 30 mL/min) AND *Sequential Compression Device (SCD) Assessment and Plan - Assessment and Plan Plan: Assessment: 72yM with active GI bleed, most likely upper GI. will continue to transfuse prn. GI consult. NPO for scope. trend H&H Active Upper GI bleed - transfuse additional 1 unit prbc - give K Centra given eliquis use - serial H&H - protonix iv q12h - npo for scope - gi consulted Atrial fibrillation - hold carvedilol - hold eliqus CHF - unknown type, unknown EF - hold lasix - gentle fluid resuscation Anemia secondary to acute blood loss requiring transfusion Class II/III hemorrhage - additional prbc - serial H&H - mivf - transfuse prn to keep hgb > 8 or continued active hemorrhage. - check coags Acute kidney injury - unknown baseline - history of prior CRF - likely secondary to acute hemorrhage - mivf - trend cr - close uop monitoring. NPO OOB with assist SCDs hold pharmacologic dvt prophylaxis given active hemorrhage. Admit to ICU H&P: Quality - VTE Deep Vein Thrombosis/Pulmonary Embolism Present on Admission: No
[2018-03-04] MEDS ORDERED: Non-Formulary Drug (Omega 3-Dha-Epa-Fish Oil [Fish Oil] 1,000 MG) PO SCH (09:00)
[2018-03-04] MEDS: Sodium Chlor 0.9% Inj 250 ML IV.SIG SCH (09:00)
[2018-03-04] MEDS: Senna/Docusate Sodium 8.6/50 MG Tablet PO SCH (09:00)
[2018-03-04] MEDS ORDERED: Furosemide 40 MG Tablet PO SCH (09:00)
[2018-03-04] MEDS ORDERED: Carvedilol 12.5 MG Tablet PO SCH (09:00)
[2018-03-04 09:17] LABS: Activated Partial Thrombo Time 26.4 sec (24.3-30.1); INR 1.2 Ratio; Prothrombin Time 12.4 sec (9.8-11.6)
[2018-03-04] MEDS: Magnesium Oxide 400 MG Tablet PO SCH ×2 (09:23→21:06)
[2018-03-04] MEDS: Gabapentin 300 MG Capsule PO SCH ×3 (09:23→17:43)
[2018-03-04] MEDS: Calcium/Vitamin D 250/125 MG Tablet PO SCH (09:23)
--- NOTE | 2018-03-04 10:32 | P.CONGI ---
History of Present Illness Consult date: 03/04/18 Consult reason: GI bleed-black tarry stools Chief complaint: GI Bleed, rectal bleed History of Present Illness: This patient is a 72-year-old male with a medical history of renal failure in the past who presented to the emergency room with sudden onset of fatigue with 2 -3 dark tarry bowel movements yesterday. Patient was noted to be anemic with a hemoglobin of 9.5 and hematocrit of 27.8. He was also hypotensive and tachycardic. Patient was transfused with packed RBCs 1 unit. Per patient's spouse patient had again 3 tarry stools yesterday evening and then proceeded to have 1 tarry stool estimated every hour overnight. Patient on Eliquis for A. fib, last dose last night at 5 PM. Patient also on Plavix for cardiac stents last dose 5 PM last evening. Per patient last EGD and colonoscopy done 3 years ago EGD was unremarkable, benign polyps were found on colonoscopy. Patient has history of Pulido's esophagus per spouse for which he takes Protonix 40 mg once a day. Patient denies nausea or vomiting, denies any difficulty swallowing or pain with swallowing. Reports that there is no known family history of gastric cancers or ulcers. Patient denies use of tobacco but does state that he drinks alcohol socially. 03/04/2018 hemoglobin 8.5 hematocrit 25.1. Patient is awake alert and oriented spouse at bedside during consultation. Patient being prepared for transfer to GI lab for EGD at this time. <Maida Tobias - Last Filed: 03/04/18 10:32> Review of Systems All other systems reviewed negative except as stated in HPI <Maida Tobias - Last Filed: 03/04/18 10:32> PMFSH - History History Provided By: Patient, Family Member, Medical Record - Medical History Medical History: Medical History (Last Reviewed 03/04/18 @ 08:17 by Dylan Hook MD) A-fib CAD (coronary artery disease) CHF (congestive heart failure) Diabetes Kidney failure Pacemaker - Surgical History Surgical History: Surgical History (Last Reviewed 03/04/18 @ 08:17 by Dylan Hook MD) H/O heart artery stent Hx of cholecystectomy Hx of tonsillectomy S/P ablation of atrial fibrillation - Tobacco History Second Hand Smoke Exposure: No Tobacco Use In Past 30 Days: No Smoking Status: Former smoker Tobacco Type: Cigarettes - Alcohol History How Often Do You Have a Drink Containing Alcohol: Monthly or less - Substance Use History Substance History: No History of Abuse - Travel History Recent Travel in the [place] Within the Last 8 Weeks: No Recent Travel Out of the Country Within the Last 8 Weeks: No - Immunization History Tetanus Immunization: <5 Years <Maida Tobias - Last Filed: 03/04/18 10:32> - Medical History Medical History: Medical History (Last Reviewed 03/04/18 @ 08:17 by Dylan Hook MD) A-fib CAD (coronary artery disease) CHF (congestive heart failure) Diabetes Kidney failure Pacemaker - Surgical History Surgical History: Surgical History (Last Reviewed 03/04/18 @ 08:17 by Dylan Hook MD) H/O heart artery stent Hx of cholecystectomy Hx of tonsillectomy S/P ablation of atrial fibrillation <Cassy Polanco - Last Filed: 03/04/18 11:18> Medications and Allergies Active Medications: Active Medications Acetaminophen (Tylenol) 650 mg PO Q6H PRN PRN Reason: PAIN 1-10 AND/OR FEVER >101F Al Hydroxide/Mg Hydroxide (Milk Of Sanju Limarj) 30 ml PO Q12H PRN PRN Reason: Mild Constipation Albuterol (Duoneb Neb (Prn)) 1 ampul NEB Q2HR NEB PRN PRN Reason: WHEEZING Atorvastatin Calcium (Lipitor) 40 mg PO DAILY [facility] Last Admin: 03/04/18 09:23 Dose: 40 mg Bisacodyl (Dulcolax Supp) 10 mg RECTAL DAILY PRN PRN Reason: SEVERE CONSITIPATION Calcium/Vitamin D (Oscal With D 250/125 Mg) 2 tab PO DAILY [facility] Last Admin: 03/04/18 09:23 Dose: 2 tab Chlorhexidine Gluconate (Chlorhexidine 2% Cloth) 3 pack TOPICAL DAILY@0400 [facility] Stop: 03/09/18 03:59 Chlorhexidine Gluconate (Chlorhexidine 2% Cloth) 3 pack TOPICAL DAILY@0400 PRN PRN Reason: Extra cloth needed Stop: 03/09/18 03:59 Dextrose (D50w Vial) 50 ml IV.PUSH UNSCH PRN PRN Reason: PER HYPOGLYCEMIA PROTOCOL Gabapentin (Neurontin) 300 mg PO TID [facility] Last Admin: 03/04/18 09:23 Dose: 300 mg Glucagon (Glucagon Inj) 1 mg OTHER PRN PRN PRN Reason: for Hypoglycemia Protocol Sodium Chloride (Ns Inj) 250 mls @ 15 mls/hr IV.SIG ONCE [facility] Stop: 03/04/18 18:39 Sodium Chloride (Ns Inj) 1,000 mls @ 84 mls/hr IV.CONT .[id number] [facility] Last Admin: 03/04/18 06:12 Dose: 84 mls/hr Sodium Chloride (Ns Inj) 250 mls @ 15 mls/hr IV.SIG ONCE [facility] Stop: 03/05/18 01:39 Insulin Aspart (Novolog Insulin Correctional Sugar Inj) 0 unit SQ Q6HR [facility]; Protocol Lactulose (Lactulose Liq) 30 ml PO DAILY PRN PRN Reason: SEVERE CONSITIPATION Magnesium Oxide (Mag-Ox) 400 mg PO BID [facility] Last Admin: 03/04/18 09:23 Dose: 400 mg Morphine Sulfate (Morphine Inj) 2 mg IV.PUSH Q2H PRN PRN Reason: PAIN SCALE 6 TO 10 Multivitamins (Theragran) 1 tab PO DAILY [facility] Last Admin: 03/04/18 09:23 Dose: 1 tab Ondansetron HCl (Zofran Inj) 4 mg IV.PUSH Q6H PRN PRN Reason: NAUSEA OR VOMITING Pantoprazole Sodium (Protonix Inj) 40 mg IV.PUSH Q12H [facility] Senna/Docusate Sodium (Caron-Colace) 1 tab PO BID [facility] Sennosides (Senokot) 17.2 mg PO Q12H PRN PRN Reason: Moderate Constipation Sodium Chloride (Ns Flush) 2 ml IV.FLUSH BID [facility] Sodium Chloride (Ns Flush) 2 ml IV.FLUSH PRN PRN PRN Reason: FLUSH AFTER USING IV ACCESS <Maida Tobias - Last Filed: 03/04/18 10:32> Active Medications: Active Medications Acetaminophen (Tylenol) 650 mg PO Q6H PRN PRN Reason: PAIN 1-10 AND/OR FEVER >101F Al Hydroxide/Mg Hydroxide (Milk Of Magnesia Liq) 30 ml PO Q12H PRN PRN Reason: Mild Constipation Albuterol (Duoneb Neb (Prn)) 1 ampul NEB Q2HR NEB PRN PRN Reason: WHEEZING Atorvastatin Calcium (Lipitor) 40 mg PO DAILY [facility] Last Admin: 03/04/18 09:23 Dose: 40 mg Bisacodyl (Dulcolax Supp) 10 mg RECTAL DAILY PRN PRN Reason: SEVERE CONSITIPATION Calcium/Vitamin D (Oscal With D 250/125 Mg) 2 tab PO DAILY [facility] Last Admin: 03/04/18 09:23 Dose: 2 tab Chlorhexidine Gluconate (Chlorhexidine 2% Cloth) 3 pack TOPICAL DAILY@0400 [place] Stop: 03/09/18 03:59 Chlorhexidine Gluconate (Chlorhexidine 2% Cloth) 3 pack TOPICAL DAILY@0400 PRN PRN Reason: Extra cloth needed Stop: 03/09/18 03:59 Dextrose (D50w Vial) 50 ml IV.PUSH UNSCH PRN PRN Reason: PER HYPOGLYCEMIA PROTOCOL Gabapentin (Neurontin) 300 mg PO TID [facility] Last Admin: 03/04/18 09:23 Dose: 300 mg Glucagon (Glucagon Inj) 1 mg OTHER PRN PRN PRN Reason: for Hypoglycemia Protocol Sodium Chloride (Ns Inj) 250 mls @ 15 mls/hr IV.SIG ONCE [facility] Stop: 03/04/18 18:39 Sodium Chloride (Ns Inj) 1,000 mls @ 84 mls/hr IV.CONT .[id number] [facility] Last Infusion: 03/04/18 10:15 Dose: 0 mls/hr Sodium Chloride (Ns Inj) 250 mls @ 15 mls/hr IV.SIG ONCE [facility] Stop: 03/05/18 01:39 Insulin Aspart (Novolog Insulin Correctional Sugar Inj) 0 unit SQ Q6HR [facility]; Protocol Lactulose (Lactulose Liq) 30 ml PO DAILY PRN PRN Reason: SEVERE CONSITIPATION Magnesium Oxide (Mag-Ox) 400 mg PO BID [facility] Last Admin: 03/04/18 09:23 Dose: 400 mg Morphine Sulfate (Morphine Inj) 2 mg IV.PUSH Q2H PRN PRN Reason: PAIN SCALE 6 TO 10 Multivitamins (Theragran) 1 tab PO DAILY [facility] Last Admin: 03/04/18 09:23 Dose: 1 tab Ondansetron HCl (Zofran Inj) 4 mg IV.PUSH Q6H PRN PRN Reason: NAUSEA OR VOMITING Pantoprazole Sodium (Protonix Inj) 40 mg IV.PUSH Q12H [facility] Senna/Docusate Sodium (Caron-Colace) 1 tab PO BID [facility] Sennosides (Senokot) 17.2 mg PO Q12H PRN PRN Reason: Moderate Constipation Sodium Chloride (Ns Flush) 2 ml IV.FLUSH BID [facility] Sodium Chloride (Ns Flush) 2 ml IV.FLUSH PRN PRN PRN Reason: FLUSH AFTER USING IV ACCESS <Cassy Polanco - Last Filed: 03/04/18 11:18> Allergies Allergy/AdvReac Type Severity Reaction Status Date / Time Penicillins Allergy unknown Verified 03/03/18 22:37 Home Medications Medication Instructions Recorded Confirmed Type apixaban [Eliquis] 5 mg PO BID 03/03/18 03/03/18 History atorvastatin 40 mg PO DAILY 03/03/18 03/03/18 History calcium carbonate-vitamin D3 600 mg PO DAILY 03/03/18 03/03/18 History [Calcium 600 + D(3)] carvedilol [Coreg] 25 mg PO BID 03/03/18 03/03/18 History clopidogrel [Plavix] 75 mg PO DAILY 03/03/18 03/03/18 History furosemide 80 mg PO DAILY 03/03/18 03/03/18 History gabapentin 300 mg PO TID 03/03/18 03/03/18 History insulin aspart U-100 [Novolog 20 unit SUBCUT DAILY 03/03/18 03/03/18 History U-100 Insulin aspart] insulin detemir U-100 [Levemir 70 unit SUBCUT TID 03/03/18 03/03/18 History U-100 Insulin] magnesium oxide 400 mg PO BID 03/03/18 03/03/18 History multivitamin 1 tab PO DAILY 03/03/18 03/03/18 History omega [id number]-fish oil [Fish Oil] 1,000 mg PO DAILY 03/03/18 03/03/18 History pantoprazole [Protonix] 40 mg PO DAILY 03/03/18 03/03/18 History potassium chloride 20 meq PO DAILY 03/03/18 03/03/18 History sacubitril-valsartan [Entresto] 1 tab PO BID 03/03/18 03/03/18 History Exam Vital signs: Vital Signs 03/03/18 22:24 03/04/18 01:22 03/04/18 01:40 Temperature 98.0 F 97.7 F 97.7 F Pulse Rate 80 80 80 Respiratory Rate 16 16 15 Blood Pressure 95/53 L 84/59 L 115/71 Pulse Oximetry 97 99 100 03/04/18 02:16 03/04/18 02:31 03/04/18 05:25 Temperature 97.7 F Pulse Rate 80 80 80 Respiratory Rate 16 15 16 Blood Pressure 123/68 113/56 L 97/47 L Pulse Oximetry 100 99 100 03/04/18 05:57 03/04/18 05:59 03/04/18 06:00 Temperature Pulse Rate 80 80 80 Respiratory Rate 19 19 14 Blood Pressure 117/58 L 118/59 L Pulse Oximetry 96 99 03/04/18 07:00 03/04/18 07:01 03/04/18 08:00 Temperature 97.4 F L Pulse Rate 80 80 80 Respiratory Rate 10 L 11 L 16 Blood Pressure 96/50 L 107/57 L Pulse Oximetry 100 100 99 03/04/18 08:53 Temperature 97.4 F L Pulse Rate 81 Respiratory Rate 14 Blood Pressure 107/57 L Pulse Oximetry 100 Intake & Output 03/03/18 03/04/18 03/04/18 18:59 06:59 18:59 Intake Total 450 / 450 0 / 0 Balance 450 / 450 0 / 0 Weight 122.7 kg Intake: Other 50 / 50 Rbc As-3 Leukoreduced Unit 50 / 50 [id number] Intake (Blood Product) Amt 400 / 400 0 / 0 Rbc As-3 Leukoreduced Unit 400 / 400 [id number] Rbc As-3 Leukoreduced Unit 0 / 0 [id number] Other: Date of Last Bowel Movement 03/04/18 Weight On Admission 122.7 kg - Constitutional no acute distress - Routine HEENT Exam Head: Present: normocephalic - Routine Respiratory Exam Present: CTA bilaterally - Routine Cardiovascular Exam Present: S1, S2 - Routine Abdominal Exam Present: soft, normoactive bowel sounds. Absent: tenderness, distended, guarding, firm - Routine Extremities Exam Present: pulses intact. Absent: edema - Routine Skin Exam Present: dry, warm, normal turgor. Absent: jaundice - Routine Neurological Exam Present: alert, oriented X3 <Tobias,Maida - Last Filed: 03/04/18 10:32> Vital signs: Vital Signs 03/03/18 22:24 03/04/18 01:22 03/04/18 01:40 Temperature 98.0 F 97.7 F 97.7 F Pulse Rate 80 80 80 Respiratory Rate 16 16 15 Blood Pressure 95/53 L 84/59 L 115/71 Pulse Oximetry 97 99 100 03/04/18 02:16 03/04/18 02:31 03/04/18 05:25 Temperature 97.7 F Pulse Rate 80 80 80 Respiratory Rate 16 15 16 Blood Pressure 123/68 113/56 L 97/47 L Pulse Oximetry 100 99 100 03/04/18 05:57 03/04/18 05:59 03/04/18 06:00 Temperature Pulse Rate 80 80 80 Respiratory Rate 19 19 14 Blood Pressure 117/58 L 118/59 L Pulse Oximetry 96 99 03/04/18 07:00 03/04/18 07:01 03/04/18 08:00 Temperature 97.4 F L Pulse Rate 80 80 80 Respiratory Rate 10 L 11 L 16 Blood Pressure 96/50 L 107/57 L Pulse Oximetry 100 100 99 03/04/18 08:53 Temperature 97.4 F L Pulse Rate 81 Respiratory Rate 14 Blood Pressure 107/57 L Pulse Oximetry 100 Intake & Output 03/03/18 03/04/18 03/04/18 18:59 06:59 18:59 Intake Total 450 / 450 0 / 0 Balance 450 / 450 0 / 0 Weight 122.7 kg Intake: Other 50 / 50 Rbc As-3 Leukoreduced Unit 50 / 50 [id number] Intake (Blood Product) Amt 400 / 400 0 / 0 Rbc As-3 Leukoreduced Unit 400 / 400 [id number] Rbc As-3 Leukoreduced Unit 0 / 0 [id number] Other: Date of Last Bowel Movement 03/04/18 Weight On Admission 122.7 kg <Cassy Polanco - Last Filed: 03/04/18 11:18> Results - Labs CBC & Chem 7: 03/04/18 05:16 03/03/18 23:20 Labs: Laboratory Results - last 24 hr 03/03/18 03/03/18 03/03/18 23:20 23:20 23:20 CBC w Diff Auto diff final WBC 8.7 RBC 3.53 L Hgb 9.5 L Hct 27.8 L MCV 78.7 L MCH 26.8 L MCHC 34.1 RDW 14.0 Plt Count 158 MPV 9.1 Neut % (Auto) 82.3 H Lymph % (Auto) 7.6 L Clare % (Auto) 6.3 Eos % (Auto) 3.6 Baso % (Auto) 0.2 Neut # (Auto) 7.2 Lymph # (Auto) 0.7 L Clare # (Auto) 0.5 Eos # (Auto) 0.3 Baso # (Auto) 0.0 WBC Differential . Differential Comment . PT INR APTT Fibrinogen Sodium 140 Potassium 4.9 Chloride 106 Carbon Dioxide 25.8 Anion Gap 8 BUN 54 H Creatinine 1.70 H Estimated GFR 40 L Random Glucose 90 Lactic Acid Calcium 8.9 Total Bilirubin 0.5 AST 29 ALT 34 Alkaline Phosphatase 66 Total Protein 6.3 L Albumin 3.1 L Blood Type A Positive Blood Type Recheck Required Antibody Screen Negative MTS Gel Crossmatch 03/04/18 03/04/18 03/04/18 00:50 01:25 05:16 CBC w Diff Auto diff final WBC 9.2 7.0 RBC 3.74 L 3.16 L Hgb 9.5 L 8.5 L Hct 29.9 L 25.1 L MCV 79.9 L 79.6 L MCH 25.5 L 27.0 MCHC 31.9 L 33.9 RDW 13.3 13.9 Plt Count 179 123 L D MPV 8.8 9.6 Neut % (Auto) 79.9 H Lymph % (Auto) 9.6 Clare % (Auto) 6.7 Eos % (Auto) 3.5 Baso % (Auto) 0.3 Neut # (Auto) 7.4 Lymph # (Auto) 0.9 L Clare # (Auto) 0.6 Eos # (Auto) 0.3 Baso # (Auto) 0.0 WBC Differential . Differential Comment . PT INR APTT Fibrinogen Sodium Potassium Chloride Carbon Dioxide Anion Gap BUN Creatinine Estimated GFR Random Glucose Lactic Acid Calcium Total Bilirubin AST ALT Alkaline Phosphatase Total Protein Albumin Blood Type Blood Type Recheck Antibody Screen MTS Gel Crossmatch See Detail 03/04/18 03/04/18 03/04/18 08:43 08:43 08:45 CBC w Diff WBC RBC Hgb Hct MCV MCH MCHC RDW Plt Count MPV Neut % (Auto) Lymph % (Auto) Clare % (Auto) Eos % (Auto) Baso % (Auto) Neut # (Auto) Lymph # (Auto) Clare # (Auto) Eos # (Auto) Baso # (Auto) WBC Differential Differential Comment PT 12.4 H INR 1.2 APTT 26.4 Fibrinogen 203 L Sodium Potassium Chloride Carbon Dioxide Anion Gap BUN Creatinine Estimated GFR Random Glucose Lactic Acid 1.7 Calcium Total Bilirubin AST ALT Alkaline Phosphatase Total Protein Albumin Blood Type Blood Type Recheck Antibody Screen MTS Gel Crossmatch See Detail <Maida Tobias - Last Filed: 03/04/18 10:32> - Labs CBC & Chem 7: 03/04/18 05:16 03/03/18 23:20 Labs: Laboratory Results - last 24 hr 03/03/18 03/03/18 03/03/18 23:20 23:20 23:20 CBC w Diff Auto diff final WBC 8.7 RBC 3.53 L Hgb 9.5 L Hct 27.8 L MCV 78.7 L MCH 26.8 L MCHC 34.1 RDW 14.0 Plt Count 158 MPV 9.1 Neut % (Auto) 82.3 H Lymph % (Auto) 7.6 L Clare % (Auto) 6.3 Eos % (Auto) 3.6 Baso % (Auto) 0.2 Neut # (Auto) 7.2 Lymph # (Auto) 0.7 L Clare # (Auto) 0.5 Eos # (Auto) 0.3 Baso # (Auto) 0.0 WBC Differential . Differential Comment . PT INR APTT Fibrinogen Sodium 140 Potassium 4.9 Chloride 106 Carbon Dioxide 25.8 Anion Gap 8 BUN 54 H Creatinine 1.70 H Estimated GFR 40 L Random Glucose 90 Lactic Acid Calcium 8.9 Total Bilirubin 0.5 AST 29 ALT 34 Alkaline Phosphatase 66 Total Protein 6.3 L Albumin 3.1 L Blood Type A Positive Blood Type Recheck Required Antibody Screen Negative MTS Gel Crossmatch 03/04/18 03/04/18 03/04/18 00:50 01:25 05:16 CBC w Diff Auto diff final WBC 9.2 7.0 RBC 3.74 L 3.16 L Hgb 9.5 L 8.5 L Hct 29.9 L 25.1 L MCV 79.9 L 79.6 L MCH 25.5 L 27.0 MCHC 31.9 L 33.9 RDW 13.3 13.9 Plt Count 179 123 L D MPV 8.8 9.6 Neut % (Auto) 79.9 H Lymph % (Auto) 9.6 Clare % (Auto) 6.7 Eos % (Auto) 3.5 Baso % (Auto) 0.3 Neut # (Auto) 7.4 Lymph # (Auto) 0.9 L Clare # (Auto) 0.6 Eos # (Auto) 0.3 Baso # (Auto) 0.0 WBC Differential . Differential Comment . PT INR APTT Fibrinogen Sodium Potassium Chloride Carbon Dioxide Anion Gap BUN Creatinine Estimated GFR Random Glucose Lactic Acid Calcium Total Bilirubin AST ALT Alkaline Phosphatase Total Protein Albumin Blood Type Blood Type Recheck Antibody Screen MTS Gel Crossmatch See Detail 03/04/18 03/04/18 03/04/18 08:43 08:43 08:45 CBC w Diff WBC RBC Hgb Hct MCV MCH MCHC RDW Plt Count MPV Neut % (Auto) Lymph % (Auto) Clare % (Auto) Eos % (Auto) Baso % (Auto) Neut # (Auto) Lymph # (Auto) Clare # (Auto) Eos # (Auto) Baso # (Auto) WBC Differential Differential Comment PT 12.4 H INR 1.2 APTT 26.4 Fibrinogen 203 L Sodium Potassium Chloride Carbon Dioxide Anion Gap BUN Creatinine Estimated GFR Random Glucose Lactic Acid 1.7 Calcium Total Bilirubin AST ALT Alkaline Phosphatase Total Protein Albumin Blood Type Blood Type Recheck Antibody Screen MTS Gel Crossmatch See Detail <Cassy Polanco - Last Filed: 03/04/18 11:18> Assessment and Plan (1) GI bleed Status: Acute Code(s): K92.2 - Gastrointestinal hemorrhage, unspecified - Plan This patient is a 72-year-old male with a medical history of renal failure in the past who presented to the emergency room with sudden onset of fatigue with 2 -3 dark tarry bowel movements yesterday. Patient was noted to be anemic with a hemoglobin of 9.5 and hematocrit of 27.8. He was also hypotensive and tachycardic. Patient was transfused with packed RBCs 1 unit. Per patient's spouse patient had again 3 tarry stools yesterday evening and then proceeded to have 1 tarry stool estimated every hour overnight. Patient on Eliquis for A. fib, last dose last night at 5 PM. Patient also on Plavix for cardiac stents last dose 5 PM last evening. Per patient last EGD and colonoscopy done 3 years ago EGD was unremarkable, benign polyps were found on colonoscopy. Patient has history of Pulido's esophagus per spouse for which he takes Protonix 40 mg once a day. Patient denies nausea or vomiting, denies any difficulty swallowing or pain with swallowing. Reports that there is no known family history of gastric cancers or ulcers. Patient denies use of tobacco but does state that he drinks alcohol socially. 03/04/2018 hemoglobin 8.5 hematocrit 25.1. Patient is awake alert and oriented spouse at bedside during consultation. Patient being prepared for transfer to GI lab for EGD at this time. Plan: -N.p.o. -Consent obtained for EGD -Monitor for bleeding -Monitor hemoglobin and hematocrit -Hold Plavix/Eliquis -Transfuse as required -PPI -Supportive care -Further recommendations to follow based on findings This patient has been seen by myself and Dr. Polanco and this note is written on his behalf <Maida Tobias - Last Filed: 03/04/18 10:32> (1) GI bleed Status: Acute Code(s): K92.2 - Gastrointestinal hemorrhage, unspecified - Plan Seen and examined with AUTOMATION TECHNICIAN, type and screen for 2 units of PRBC. On anticoagulants, egd planned for today. NPO with IV protonix. Thank you The exam, history, and the medical decision-making described in the above note were completed with the assistance of the mid-level provider. I reviewed and agree with the findings presented. I attest that I had a [id number] encounter with the patient on the same day, and personally performed and documented my assessment and findings in the medical record. <Cassy Polanco - Last Filed: 03/04/18 11:18> <Maida Tobias - Last Filed: 03/04/18 10:32> (1) GI bleed Qualifiers: GI bleed type/associated pathology: melena Qualified Code(s): K92.1 - Melena <Cassy Polanco - Last Filed: 03/04/18 11:18> (1) GI bleed Qualifiers: GI bleed type/associated pathology: melena Qualified Code(s): K92.1 - Melena
[2018-03-04] MEDS ORDERED: Lidocaine PF 1% Inj 5 ML Syringe OTHER ONE (11:05)
[2018-03-04] MEDS ORDERED: Succinylcholine Inj 100 MG/5 ML Syringe IV.PUSH ONE (11:05)
--- NOTE | 2018-03-04 11:31 | GIPROC ---
[facility] [address] [facility]. [facility], [id number] EGD PROCEDURE REPORT EXAM DATE: 03/04/2018 PATIENT NAME: Karel Briecno MR #: [id number] BIRTHDATE: 1945 ATTENDING: Cassy Polanco MD ORDER #: [id number] PHYSICAL THERAPY AIDE: Leticia Irizarry RN STATUS: inpatient INDICATIONS: The patient is a 72 yr old male here for an EGD due to melena and acute post hemorrhagic anemia PROCEDURE PERFORMED: EGD, diagnostic MEDICATIONS: None and Per Anesthesia. TOPICAL ANESTHETIC: CONSENT: The patient understands the risks and benefits of the procedure and understands that these risks include, but are not limited to: sedation, allergic reaction, infection, perforation and/or bleeding. Alternative means of evaluation and treatment include, among others: physical exam, x-rays, and/or surgical intervention. The patient elects to proceed with this endoscopic procedure. medical equipment was checked for proper function. Hand hygiene and appropriate measures for infection prevention was taken. After the risks, benefits and alternatives of the procedure were thoroughly explained, Informed consent was verified, confirmed and timeout was successfully executed by the treatment team. The patient was anesthetized with topical anesthesia and the Pentax [id number] endoscope was introduced through the mouth and advanced to the second portion of the duodenum. Retroflexed views revealed large blood clot The gastroscope was then slowly withdrawn and removed. ESOPHAGUS: There was LA Class B esophagitis noted. STOMACH: Full of blood, mostly clots and some fresh blood. Multiple areas washed. No clear sign of bleeding seen. DUODENUM: Blood in suodenum. ADVERSE EVENTS: There were no complications. IMPRESSIONS: 1. There was LA Class B esophagitis noted 2. Full of blood, mostly clots and some fresh blood. Multiple areas washed. No clear sign of bleeding seen 3. Blood in suodenum 4. Retroflexed views revealed large blood clot RECOMMENDATIONS: 1. Continue PPI 2. Hold anticoagulants for now. PATIENT CONDITION: stable DISPOSITION: Inpatient REPEAT EXAM: Return 1 day EGD Cassy Polanco MD eSigned: Cassy Polanco MD 03/04/2018 11:30 AM cc: PATIENT NAME: Karel Briceno MR#: [id number]
[2018-03-04] MEDS: Insulin NovoLOG Aspart Correctional Sugar Inj SQ SCH ×2 (12:12→17:45)
[2018-03-04 13:29] LABS: Hematocrit 27.6 % (39.0-51.0); Hemoglobin 9.1 gm/dL (13.0-17.0)
[2018-03-04] MEDS: Pantoprazole Inj 40 MG Vial IV.PUSH SCH (14:54)
[2018-03-04 18:05] LABS: Hemoglobin 8.7 gm/dL (13.0-17.0)
[2018-03-04 23:28] LABS: Hematocrit 25.3 % (39.0-51.0); Hemoglobin 8.2 gm/dL (13.0-17.0)
[2018-03-05] MEDS: Insulin NovoLOG Aspart Correctional Sugar Inj SQ SCH ×5 (00:27→17:16)
[2018-03-05] MEDS: Pantoprazole Inj 40 MG Vial IV.PUSH SCH ×3 (02:14→14:47)
[2018-03-05] MEDS: Sod Chloride 0.9% Inj 1,000 ML IV.CONT SCH (05:34)
[2018-03-05] MEDS: Chlorhexidine Gluconate 2% 1 Pack (2 Cloths) TOPICAL SCH ×2 (05:35→11:30)
[2018-03-05] MEDS: Senna/Docusate Sodium 8.6/50 MG Tablet PO SCH ×3 (05:35→21:27)
[2018-03-05] MEDS: Magnesium Oxide 400 MG Tablet PO SCH ×2 (08:35→21:26)
[2018-03-05] MEDS: Calcium/Vitamin D 250/125 MG Tablet PO SCH (08:35)
[2018-03-05] MEDS: Gabapentin 300 MG Capsule PO SCH ×3 (08:35→17:15)
[2018-03-05 09:08] LABS: Baso % (Auto) 0.5 % (0.0-2.0); Eos # (Auto) 0.2 th/mm3 (0.0-0.4); Hematocrit 24.1 % (39.0-51.0); Lymph # (Auto) 0.6 th/mm3 (1.0-4.8); Lymph % (Auto) 9.8 % (9.0-44.0); Mean Corpuscular HGB Conc 33.2 % (32.0-36.0); Mean Corpuscular Hemoglobin 26.8 pg (27.0-34.0); Mean Corpuscular Volume 80.8 fL (80.0-100.0); Mean Platelet Volume 8.5 fL (7.0-11.0); Mono # (Auto) 0.5 th/mm3 (0.0-0.9); Neut # (Auto) 4.7 th/mm3 (1.8-7.7); Neut % (Auto) 77.7 % (16.0-70.0); Platelet Count 96 th/mm3 (150-450); Red Blood Count 2.98 mil/mm3 (4.50-5.90); Red Cell Distribution Width 14.6 % (11.6-17.2)
[2018-03-05 09:25] LABS: Albumin 2.8 g/dL (3.4-5.0); Anion Gap 10 meq/L (5-15); Aspartate Aminotransferase 30 U/L (15-37); Blood Urea Nitrogen 57 mg/dL (7-18); Calcium 8.7 mg/dL (8.5-10.1); Carbon Dioxide 23.9 meq/L (21.0-32.0); Chloride 112 meq/L (98-107); Glomerular Filtration Rate 49 mL/min (>89); Glucose,Random 277 mg/dL (74-106); Magnesium 2.3 mg/dL (1.5-2.5); Potassium 4.4 meq/L (3.5-5.1); Sodium 146 meq/L (136-145)
[2018-03-05 09:26] LABS: Alanine Aminotransferase 29 U/L (12-78)
[2018-03-05 09:28] LABS: Alkaline Phosphatase 52 U/L (45-117); Total Protein 5.8 g/dL (6.4-8.2)
[2018-03-05 09:45] LABS: Platelet Morphology Normal (Normal)
--- NOTE | 2018-03-05 10:07 | P.PNCC ---
Subjective Subjective Remarks/Hospital Course: 72yM with history of prior kidney failure of unknown etiology who presented with sudden-onset fatigue and 2 dark tarry bowel movements. found to be anemic, hypotensive, tachycardic in the ER, given 1 unit prbc. Denies abd, N/V, fever, chills, chest pain, shortness of breath. Takes Eliquis for h/o afib. Denies h/o NSAID use. 03/05- Patient taken for emergent EGD overnight, found to have esophagitis and large blood clot in stomach but no active bleeding. Continues to have melanotic stools overnight. Plan for repeat EGD today. Patient complains of sore throat from NGT. Objective Vital Signs / I&O: Vital Signs 03/04/18 11:33 03/04/18 11:45 03/04/18 12:00 Temperature 97.6 F Pulse Rate 82 84 81 Respiratory Rate 16 16 21 Blood Pressure 163/87 H 126/70 126/60 Pulse Oximetry 99 98 100 03/04/18 12:04 03/04/18 12:06 03/04/18 12:08 Temperature 97.6 F Pulse Rate 80 80 81 Respiratory Rate 12 25 H 16 Blood Pressure 153/67 H 140/77 140/70 Pulse Oximetry 100 100 99 03/04/18 12:10 03/04/18 12:15 03/04/18 12:24 Temperature Pulse Rate 85 86 80 Respiratory Rate 17 16 12 Blood Pressure 147/98 H 140/77 137/62 Pulse Oximetry 94 L 100 100 03/04/18 12:27 03/04/18 12:30 03/04/18 12:31 Temperature Pulse Rate 81 80 80 Respiratory Rate 14 11 L 14 Blood Pressure 131/58 L 136/64 137/65 Pulse Oximetry 100 100 99 03/04/18 12:33 03/04/18 12:36 03/04/18 13:00 Temperature Pulse Rate 80 80 80 Respiratory Rate 14 14 15 Blood Pressure 132/59 L 128/61 Pulse Oximetry 100 100 98 03/04/18 13:01 03/04/18 13:30 03/04/18 14:00 Temperature 97.4 F L Pulse Rate 80 80 80 Respiratory Rate 13 20 17 Blood Pressure 150/64 H 125/58 L 135/82 Pulse Oximetry 99 97 100 03/04/18 15:01 03/04/18 16:00 03/04/18 17:00 Temperature 97.4 F L Pulse Rate 80 80 82 Respiratory Rate 17 12 10 L Blood Pressure 147/65 H 129/60 135/63 Pulse Oximetry 100 96 96 03/04/18 18:00 03/04/18 18:12 03/04/18 18:31 Temperature Pulse Rate 80 80 80 Respiratory Rate 21 18 18 Blood Pressure 149/60 H 117/56 L 130/63 Pulse Oximetry 95 96 96 03/04/18 19:00 03/04/18 19:01 03/04/18 19:30 Temperature Pulse Rate 81 80 86 Respiratory Rate 24 17 17 Blood Pressure 121/57 L 105/59 L Pulse Oximetry 97 95 91 L 03/04/18 20:00 03/04/18 20:30 03/04/18 21:01 Temperature 97.8 F Pulse Rate 80 80 80 Respiratory Rate 14 7 L 30 H Blood Pressure 120/59 L 118/58 L 101/68 Pulse Oximetry 94 L 95 92 L 03/04/18 21:30 03/04/18 22:00 03/04/18 22:30 Temperature Pulse Rate 80 85 80 Respiratory Rate 14 27 H 12 Blood Pressure 129/61 127/87 119/58 L Pulse Oximetry 93 L 92 L 94 L 03/04/18 23:00 03/04/18 23:30 03/05/18 00:00 Temperature 98 F Pulse Rate 89 80 80 Respiratory Rate 27 H 11 L 10 L Blood Pressure 133/62 138/61 139/65 Pulse Oximetry 94 L 93 L 92 L 03/05/18 01:00 03/05/18 02:00 03/05/18 03:00 Temperature Pulse Rate 80 80 80 Respiratory Rate 54 H 24 20 Blood Pressure 99/55 L 162/67 H 108/55 L Pulse Oximetry 93 L 95 98 03/05/18 03:31 03/05/18 04:00 03/05/18 04:01 Temperature Pulse Rate 80 84 80 Respiratory Rate 10 L 16 16 Blood Pressure 57/42 L Pulse Oximetry 100 91 L 91 L 03/05/18 04:04 03/05/18 04:31 03/05/18 05:01 Temperature 97.8 F Pulse Rate 81 80 80 Respiratory Rate 17 13 14 Blood Pressure 109/55 L 150/57 H Pulse Oximetry 96 97 96 03/05/18 06:00 03/05/18 06:30 03/05/18 07:00 Temperature Pulse Rate 80 80 81 Respiratory Rate 15 18 19 Blood Pressure 115/60 116/57 L Pulse Oximetry 95 99 91 L 03/05/18 07:01 03/05/18 07:31 03/05/18 07:44 Temperature Pulse Rate 82 80 80 Respiratory Rate 30 H 14 12 Blood Pressure 151/67 H 185/76 H 145/64 H Pulse Oximetry 95 95 95 03/05/18 08:00 03/05/18 08:31 03/05/18 08:48 Temperature 97.7 F Pulse Rate 80 80 80 Respiratory Rate 13 16 18 Blood Pressure 133/62 155/67 H 165/78 H Pulse Oximetry 94 L 97 94 L 03/05/18 09:00 03/05/18 09:30 Temperature Pulse Rate 80 85 Respiratory Rate 10 L 16 Blood Pressure 162/68 H 137/65 Pulse Oximetry 93 L 96 Intake & Output 03/04/18 03/05/18 03/05/18 18:59 06:59 18:59 Intake Total 1210 / 1210 2420 / 2420 Output Total 1375 / 1375 1300 / 1300 Balance -165 / -165 1120 / 1120 Weight 120 kg Intake: IV 1999 NS Inj 1,000 ML @ 84 mls/hr IV. 1999 CONT .[id number] [facility] Rx#: [id number] Oral 360 / 360 420 / 420 Anesthesia Amount 400 / 400 Other 450 / 450 Rbc As-3 Leukoreduced Unit 200 / 200 [id number] Rbc As-3 Leukoreduced Unit 250 / 250 [id number] Intake (Blood Product) Amt 0 / 0 Rbc As-3 Leukoreduced Unit 0 / 0 [id number] Rbc As-3 Leukoreduced Unit 0 / 0 [id number] Output: Urine 1275 / 1275 1200 / 1200 Gastric Drainage 100 / 100 100 / 100 Right Nare Nasogastric Tube 100 / 100 100 / 100 Other: # Voids 1 Date of Last Bowel Movement 03/04/18 03/05/18 03/05/18 # Bowel Movements 8 5 Result Diagrams: 03/05/18 08:47 03/05/18 08:47 Objective Remarks: GEN: Well-appearing, no acute distress HEENT: NCAT, NGT in place NECK: Trachea midline CARDIO: Regular rate and rhythm, sinus on site monitor PULM: Clear to auscultation bilaterally ABD/GI: Obese, soft, non-tender in all quadrants SKIN: Warm and well-perfused EXT/MSK: Trace lower extremity edema NEURO: A&Ox3, conversational, no focal neuro deficits PSYCH: Appropriate affect Assessment and Plan - Assessment and Plan Plan: Assessment: 72yM with active GI bleed, most likely upper GI. Continue to transfuse prn. GI following. NPO for repeat scope today. Active upper GI bleed - Given K Centra for acquired coagulopathy secondary to Eliquis use, also received DDAVP for Plavix use - Serial H&H (recheck after scope today) - Protonix iv q12h - NPO for re-scope Atrial fibrillation - Restart 1/2 home dose of carvedilol, has been hypertensive overnight but HR controlled. Continue to hold ARB. - Continue statin - Hold eliquis CHF - Unknown type, unknown EF - Hold lasix, will likely need to restart low-dose tomorrow as patient is lasix- dependent at home Anemia secondary to acute blood loss requiring transfusion Class II/III hemorrhage - Hg drifting down (9--> 8 overnight), continue to trend - Maintenance fluids while NPO - Transfuse as needed to keep hgb > 8 or continued active hemorrhage Acute kidney injury - Unknown baseline, trending down - History of prior CRF - Urine output adequate overnight NPO OOB with assist Prophylaxis: SCDs, PPI Hold pharmacologic DVT prophylaxis given active hemorrhage Counseling/ Coordination of Care: Total critical care time: 42 minutes. This includes examining the patient, gathering history from someone other than the patient (i.e., chart review), discussing the patient's care with other providers, ordering and interpreting laboratory studies, restarting select home medications, re-evaluation at frequent intervals, and documentation. All critical care time is separate and exclusive of procedures, teaching, and patient/ family updates. Code Status: Full
[2018-03-05] MEDS ORDERED: Lidocaine PF 1% Inj 5 ML Syringe OTHER ONE (11:01)
[2018-03-05] MEDS: Sodium Chlor 0.9% Inj 250 ML IV.SIG SCH (11:30)
--- NOTE | 2018-03-05 11:45 | GIPROC ---
[facility] [address] [facility]. [facility], [address] EGD PROCEDURE REPORT EXAM DATE: 03/05/2018 PATIENT NAME: Karel Briceno MR #: [id number] BIRTHDATE: 1945 ATTENDING: Cassy Polanco MD ORDER #: [id number] [employer]CIAL [employer]ES ADVISOR: Huey Teresa and Leticia Irizarry STATUS: inpatient INDICATIONS: The patient is a 72 yr old male here for an EGD due to hematemesis and hematochezia PROCEDURE PERFORMED: EGD w/ ablation MEDICATIONS: None and Per Anesthesia. TOPICAL ANESTHETIC: CONSENT: The patient understands the risks and benefits of the procedure and understands that these risks include, but are not limited to: sedation, allergic reaction, infection, perforation and/or bleeding. Alternative means of evaluation and treatment include, among others: physical exam, x-rays, and/or surgical intervention. The patient elects to proceed with this endoscopic procedure. medical equipment was checked for proper function. Hand hygiene and appropriate measures for infection prevention was taken. After the risks, benefits and alternatives of the procedure were thoroughly explained, Informed consent was verified, confirmed and timeout was successfully executed by the treatment team. The patient was anesthetized with topical anesthesia and the Pentax EG-[id number] endoscope was introduced through the mouth and advanced to the second portion of the duodenum. Retroflexed views revealed no abnormalities The gastroscope was then slowly withdrawn and removed. ESOPHAGUS: There was LA Class A esophagitis noted. STOMACH: Moderate portal hypertensive gastropathy was found in the gastric body and gastric fundus. Two bleeding and irregular shaped ulcers ranging between 3-7mm in size with surrounding edema, a visible vessel and active oozing of blood were found in the gastric antrum and gastric body. Argon plasma coagulation was applied to the sites. With complete hemostasis achieved. DUODENUM: Moderate duodenal inflammation was found in the bulb and second portion of the duodenum. ADVERSE EVENTS: There were no complications. IMPRESSIONS: 1. There was LA Class A esophagitis noted 2. Portal hypertensive gastropathy was found in the gastric body and gastric fundus 3. Two ulcers ranging between 3-7mm in size were found in the gastric antrum and gastric body; Argon plasma coagulation was applied to the sites; with complete hemostasis achieved 4. Duodenal inflammation was found in the bulb and second portion of the duodenum 5. Retroflexed views revealed no abnormalities RECOMMENDATIONS: 1. Anti-reflux regimen 2. Continue PPI 3. Avoid NSAIDS PATIENT CONDITION: stable DISPOSITION: Inpatient REPEAT EXAM: Return 1 month EGD Cassy Polanco MD eSigned: Cassy Polanco MD 03/05/2018 11:44 AM cc: PATIENT NAME: Kaity Karel Yodit MR#: [id number]
[2018-03-05] MEDS ORDERED: Phenol 1.4% 180 ML Spray Bottle OROPHARYNG PRN (12:00)
[2018-03-05] MEDS: Carvedilol 12.5 MG Tablet PO SCH ×2 (12:30→21:26)
[2018-03-05 15:23] LABS: Hematocrit 23.9 % (39.0-51.0); Hemoglobin 7.9 gm/dL (13.0-17.0)
[2018-03-05] MEDS ORDERED: Sodium Chlor 0.9% Inj 250 ML IV.SIG SCH (17:00)
[2018-03-06] MEDS: Insulin NovoLOG Aspart Correctional Sugar Inj SQ SCH ×5 (01:12→23:20)
[2018-03-06] MEDS: Pantoprazole Inj 40 MG Vial IV.PUSH SCH ×2 (01:13→13:25)
[2018-03-06] MEDS: Chlorhexidine Gluconate 2% 1 Pack (2 Cloths) TOPICAL SCH (07:25)
[2018-03-06 08:12] LABS: Baso % (Auto) 0.4 % (0.0-2.0); Eos # (Auto) 0.2 th/mm3 (0.0-0.4); Eos % (Auto) 6.1 % (0.0-4.0); Hematocrit 25.9 % (39.0-51.0); Hemoglobin 8.4 gm/dL (13.0-17.0); Lymph # (Auto) 0.5 th/mm3 (1.0-4.8); Lymph % (Auto) 15.1 % (9.0-44.0); Mean Corpuscular HGB Conc 32.5 % (32.0-36.0); Mean Corpuscular Volume 83.1 fL (80.0-100.0); Mean Platelet Volume 8.7 fL (7.0-11.0); Mono # (Auto) 0.3 th/mm3 (0.0-0.9); Mono % (Auto) 9.2 % (0.0-8.0); Neut # (Auto) 2.4 th/mm3 (1.8-7.7); Neut % (Auto) 69.2 % (16.0-70.0); Platelet Count 80 th/mm3 (150-450); Red Blood Count 3.11 mil/mm3 (4.50-5.90); Red Cell Distribution Width 14.8 % (11.6-17.2); White Blood Count 3.5 th/mm3 (4.0-11.0)
[2018-03-06] MEDS: Gabapentin 300 MG Capsule PO SCH ×3 (08:31→17:16)
[2018-03-06] MEDS: Magnesium Oxide 400 MG Tablet PO SCH ×2 (08:31→20:05)
[2018-03-06] MEDS: Carvedilol 12.5 MG Tablet PO SCH ×2 (08:31→20:05)
[2018-03-06] MEDS: Calcium/Vitamin D 250/125 MG Tablet PO SCH (08:31)
[2018-03-06] MEDS: Senna/Docusate Sodium 8.6/50 MG Tablet PO SCH ×2 (08:32→20:06)
[2018-03-06 08:42] LABS: Alanine Aminotransferase 31 U/L (12-78); Albumin 2.7 g/dL (3.4-5.0); Anion Gap 7 meq/L (5-15); Aspartate Aminotransferase 31 U/L (15-37); Blood Urea Nitrogen 35 mg/dL (7-18); Calcium 8.6 mg/dL (8.5-10.1); Carbon Dioxide 26.8 meq/L (21.0-32.0); Chloride 115 meq/L (98-107); Glomerular Filtration Rate 57 mL/min (>89); Glucose,Random 220 mg/dL (74-106); Magnesium 2.4 mg/dL (1.5-2.5); Sodium 149 meq/L (136-145)
[2018-03-06 08:45] LABS: Alkaline Phosphatase 57 U/L (45-117); Total Protein 5.7 g/dL (6.4-8.2)
[2018-03-06 09:32] LABS: Ovalocytes 1+; Platelet Morphology Normal (Normal)
--- NOTE | 2018-03-06 09:41 | P.PNCC ---
Subjective Subjective Remarks/Hospital Course: 72yM with history of prior kidney failure of unknown etiology who presented with sudden-onset fatigue and 2 dark tarry bowel movements. found to be anemic, hypotensive, tachycardic in the ER, given 1 unit prbc. Denies abd, N/V, fever, chills, chest pain, shortness of breath. Takes Eliquis for h/o afib. Denies h/o NSAID use. 03/05- Patient taken for emergent EGD overnight, found to have esophagitis and large blood clot in stomach but no active bleeding. Continues to have melanotic stools overnight. Plan for repeat EGD today. Patient complains of sore throat from NGT. 03/06- Patient went for repeat EGD yesterday, found to have esophagitis, duodenitis, and 2 gastric ulcers which were ablated, received 1 U PRBCs post- procedure and has remained stable overnight. The patient has no complaints and reports that he is still having some formed black stools, but much fewer than yesterday. Objective Vital Signs / I&O: Vital Signs 03/05/18 10:00 03/05/18 10:42 03/05/18 11:00 Temperature Pulse Rate 83 81 83 Respiratory Rate 14 9 L 16 Blood Pressure 129/90 150/67 H Pulse Oximetry 96 93 L 97 03/05/18 11:48 03/05/18 12:00 03/05/18 12:03 Temperature 97.3 F L Pulse Rate 82 80 88 Respiratory Rate 17 14 27 H Blood Pressure 155/88 H 137/85 Pulse Oximetry 98 100 100 03/05/18 12:30 03/05/18 12:46 03/05/18 13:00 Temperature Pulse Rate 80 80 80 Respiratory Rate 10 L 9 L 9 L Blood Pressure 137/63 145/63 H 132/62 Pulse Oximetry 99 99 100 03/05/18 13:30 03/05/18 14:00 03/05/18 14:24 Temperature Pulse Rate 80 82 80 Respiratory Rate 15 35 H 16 Blood Pressure 129/59 L 158/70 H Pulse Oximetry 98 98 99 03/05/18 14:30 03/05/18 15:00 03/05/18 15:30 Temperature Pulse Rate 40 L 80 85 Respiratory Rate 36 H 12 16 Blood Pressure 153/66 H 138/63 152/65 H Pulse Oximetry 99 99 100 03/05/18 16:00 03/05/18 16:01 03/05/18 16:31 Temperature Pulse Rate 80 83 80 Respiratory Rate 12 13 13 Blood Pressure 143/77 H 136/61 Pulse Oximetry 03/05/18 17:00 03/05/18 17:10 03/05/18 17:25 Temperature 98.7 F 98.3 F 98.1 F Pulse Rate 80 80 80 Respiratory Rate 22 14 22 Blood Pressure 154/86 H 154/86 H 154/86 H Pulse Oximetry 100 03/05/18 17:31 03/05/18 17:35 03/05/18 17:38 Temperature Pulse Rate 86 82 81 Respiratory Rate 9 L 8 L 23 Blood Pressure 227/157 H 165/70 H 176/70 H Pulse Oximetry 03/05/18 18:00 03/05/18 18:01 03/05/18 18:30 Temperature Pulse Rate 80 80 84 Respiratory Rate 15 13 15 Blood Pressure 155/68 H 158/70 H Pulse Oximetry 94 L 94 L 95 03/05/18 19:00 03/05/18 19:30 03/05/18 20:00 Temperature 98.1 F Pulse Rate 84 82 82 Respiratory Rate 29 H 13 18 Blood Pressure 146/69 H 145/62 H 145/66 H Pulse Oximetry 95 94 L 94 L 03/05/18 20:30 03/05/18 21:00 03/05/18 21:30 Temperature Pulse Rate 81 83 81 Respiratory Rate 35 H 15 15 Blood Pressure 146/67 H 139/65 158/70 H Pulse Oximetry 95 94 L 94 L 03/05/18 22:00 03/05/18 23:00 03/05/18 23:01 Temperature Pulse Rate 84 80 80 Respiratory Rate 12 29 H 27 H Blood Pressure 157/71 H 98/55 L Pulse Oximetry 94 L 94 L 94 L 03/05/18 23:56 03/06/18 00:00 03/06/18 01:00 Temperature 98.3 F Pulse Rate 82 80 80 Respiratory Rate 13 14 16 Blood Pressure 144/67 H 137/71 Pulse Oximetry 96 95 03/06/18 01:01 03/06/18 02:00 03/06/18 02:01 Temperature Pulse Rate 84 80 86 Respiratory Rate 21 9 L 13 Blood Pressure 124/79 91/50 L Pulse Oximetry 03/06/18 03:00 03/06/18 04:00 03/06/18 05:00 Temperature 98.5 F Pulse Rate 81 80 80 Respiratory Rate 11 L 10 L 15 Blood Pressure 117/68 113/55 L 134/65 Pulse Oximetry 99 97 97 03/06/18 06:00 Temperature Pulse Rate 80 Respiratory Rate 13 Blood Pressure 144/69 H Pulse Oximetry 97 Intake & Output 03/05/18 03/06/18 03/06/18 18:59 06:59 18:59 Intake Total 506 / 506 500 / 500 Output Total 725 / 725 875 / 875 Balance -219 / -219 -375 / -375 Weight 119.9 kg Intake: IV 406 / 406 NS Inj 1,000 ML @ 84 mls/hr IV. 406 / 406 CONT .[id number] Rx#: [id number] Oral 500 / 500 Anesthesia Amount 100 / 100 Intake (Blood Product) Amt 0 / 0 Rbc As-3 Leukoreduced Unit 0 / 0 [id number] Output: Urine 725 / 725 875 / 875 Other: Date of Last Bowel Movement 03/05/18 03/05/18 # Bowel Movements 3 Result Diagrams: 03/06/18 07:00 03/06/18 07:00 Objective Remarks: GEN: Well-appearing, no acute distress HEENT: NCAT, NGT has been removed NECK: Trachea midline CARDIO: Regular rate and rhythm, sinus on equipment monitor phototypesetting PULM: Clear to auscultation bilaterally ABD/GI: Obese, soft, non-tender in all quadrants, no guarding or rebound SKIN: Warm and well-perfused EXT/MSK: No lower extremity edema NEURO: A&Ox3, conversational, no focal neuro deficits PSYCH: Appropriate affect Assessment and Plan - Assessment and Plan Plan: Assessment: 72yM with gastric ulcer x 2, upper GI bleed complicated by acquired coagulopathy secondary to Eliquis/ Plavix Active upper GI bleed - Hemoglobin 8.4, up from 7.9 after 1 U PRBCs, will continue to check daily. Will need to be restarted on his home Eliquis/ Plavis prior to discharge. - Protonix iv q12h - Diet advanced by GI, tolerating well Atrial fibrillation - BP and HR stable on 1/2 home dose of carvedilol. Continue to hold ARB. - Continue statin - Hold eliquis/ plavix, plan to restart prior to discharge CHF - Unknown type, unknown EF - Will restart low-dose lasix as patient is lasix-dependent at home (takes 80 mg daily, will start 20 mg today and can titrate up as BP allows) Anemia secondary to acute blood loss requiring transfusion Class II/III hemorrhage - Check daily CBCs - Transfuse as needed to keep hgb > 8 Acute kidney injury - Unknown baseline, trending down - History of prior CRF - Urine output adequate overnight OOB with assist Prophylaxis: SCDs, PPI Start SQH for DVT prophylaxis Counseling/ Coordination of Care: Total critical care time: 38 minutes. This includes examining the patient, gathering history from someone other than the patient (i.e., chart review), discussing the patient's care with other providers, ordering and interpreting laboratory studies, restarting select home medications, re-evaluation at frequent intervals, and documentation. All critical care time is separate and exclusive of procedures, teaching, and patient/ family updates. Code Status: Full
--- NOTE | 2018-03-06 10:12 | P.PNGI ---
Subjective Interval history: Patient awake and alert sitting up in bed. States tolerating liquid diet well, denies any nausea or vomiting. No BM today and denies any obvious bleeding. States he feels much better. <Maida Tobias - Last Filed: 03/06/18 10:04> Physical Exam Vital signs: Vital Signs 03/05/18 10:42 03/05/18 11:00 03/05/18 11:48 Temperature Pulse Rate 81 83 82 Respiratory Rate 9 L 16 17 Blood Pressure 150/67 H 155/88 H Pulse Oximetry 93 L 97 98 03/05/18 12:00 03/05/18 12:03 03/05/18 12:30 Temperature 97.3 F L Pulse Rate 80 88 80 Respiratory Rate 14 27 H 10 L Blood Pressure 137/85 137/63 Pulse Oximetry 100 100 99 03/05/18 12:46 03/05/18 13:00 03/05/18 13:30 Temperature Pulse Rate 80 80 80 Respiratory Rate 9 L 9 L 15 Blood Pressure 145/63 H 132/62 129/59 L Pulse Oximetry 99 100 98 03/05/18 14:00 03/05/18 14:24 03/05/18 14:30 Temperature Pulse Rate 82 80 40 L Respiratory Rate 35 H 16 36 H Blood Pressure 158/70 H 153/66 H Pulse Oximetry 98 99 99 03/05/18 15:00 03/05/18 15:30 03/05/18 16:00 Temperature Pulse Rate 80 85 80 Respiratory Rate 12 16 12 Blood Pressure 138/63 152/65 H Pulse Oximetry 99 100 03/05/18 16:01 03/05/18 16:31 03/05/18 17:00 Temperature 98.7 F Pulse Rate 83 80 80 Respiratory Rate 13 13 22 Blood Pressure 143/77 H 136/61 154/86 H Pulse Oximetry 03/05/18 17:10 03/05/18 17:25 03/05/18 17:31 Temperature 98.3 F 98.1 F Pulse Rate 80 80 86 Respiratory Rate 14 22 9 L Blood Pressure 154/86 H 154/86 H 227/157 H Pulse Oximetry 100 03/05/18 17:35 03/05/18 17:38 03/05/18 18:00 Temperature Pulse Rate 82 81 80 Respiratory Rate 8 L 23 15 Blood Pressure 165/70 H 176/70 H Pulse Oximetry 94 L 03/05/18 18:01 03/05/18 18:30 03/05/18 19:00 Temperature Pulse Rate 80 84 84 Respiratory Rate 13 15 29 H Blood Pressure 155/68 H 158/70 H 146/69 H Pulse Oximetry 94 L 95 95 03/05/18 19:30 03/05/18 20:00 03/05/18 20:30 Temperature 98.1 F Pulse Rate 82 82 81 Respiratory Rate 13 18 35 H Blood Pressure 145/62 H 145/66 H 146/67 H Pulse Oximetry 94 L 94 L 95 03/05/18 21:00 03/05/18 21:30 03/05/18 22:00 Temperature Pulse Rate 83 81 84 Respiratory Rate 15 15 12 Blood Pressure 139/65 158/70 H 157/71 H Pulse Oximetry 94 L 94 L 94 L 03/05/18 23:00 03/05/18 23:01 03/05/18 23:56 Temperature Pulse Rate 80 80 82 Respiratory Rate 29 H 27 H 13 Blood Pressure 98/55 L 144/67 H Pulse Oximetry 94 L 94 L 96 03/06/18 00:00 03/06/18 01:00 03/06/18 01:01 Temperature 98.3 F Pulse Rate 80 80 84 Respiratory Rate 14 16 21 Blood Pressure 137/71 124/79 Pulse Oximetry 95 03/06/18 02:00 03/06/18 02:01 03/06/18 03:00 Temperature Pulse Rate 80 86 81 Respiratory Rate 9 L 13 11 L Blood Pressure 91/50 L 117/68 Pulse Oximetry 99 03/06/18 04:00 03/06/18 05:00 03/06/18 06:00 Temperature 98.5 F Pulse Rate 80 80 80 Respiratory Rate 10 L 15 13 Blood Pressure 113/55 L 134/65 144/69 H Pulse Oximetry 97 97 97 03/06/18 07:00 03/06/18 08:00 03/06/18 09:00 Temperature 97.7 F Pulse Rate 80 80 80 Respiratory Rate 11 L 10 L 11 L Blood Pressure 140/66 159/74 H 143/66 H Pulse Oximetry 96 98 96 Intake & Output 03/05/18 03/06/18 03/06/18 18:59 06:59 18:59 Intake Total 506 / 506 500 / 500 Output Total 725 / 725 875 / 875 Balance -219 / -219 -375 / -375 Weight 119.9 kg Intake: IV 406 / 406 NS Inj 1,000 ML @ 84 mls/hr IV. 406 / 406 CONT .[id number] [facility] Rx#: [id number] Oral 500 / 500 Anesthesia Amount 100 / 100 Intake (Blood Product) Amt 0 / 0 Rbc As-3 Leukoreduced Unit 0 / 0 [id number] Output: Urine 725 / 725 875 / 875 Other: Date of Last Bowel Movement 03/05/18 03/05/18 03/05/18 # Bowel Movements 3 - Constitutional no acute distress - Routine HEENT Exam Head: Present: normocephalic - Routine Neck Exam Present: supple - Routine Respiratory Exam Present: CTA bilaterally. Absent: accessory muscle use - Routine Cardiovascular Exam Present: irregularly irregular - Routine Abdominal Exam Present: soft, normoactive bowel sounds. Absent: tenderness, distended, guarding, firm - Routine Extremities Exam Present: full ROM, pulses intact - Routine Skin Exam Present: dry, warm. Absent: pallor, jaundice - Routine Neurological Exam Present: alert, oriented X3 - Detailed Neurological Exam: Coma Scale Eye Opening: Spontaneous Verbal Response: Oriented Motor Response: [place] commands [place] Coma Scale Total: 15 - Routine Psychiatric Exam Present: normal affect, cooperative <Tobias,Maida - Last Filed: 03/06/18 10:04> Vital signs: Vital Signs 03/05/18 14:00 03/05/18 14:24 03/05/18 14:30 Temperature Pulse Rate 82 80 40 L Respiratory Rate 35 H 16 36 H Blood Pressure 158/70 H 153/66 H Pulse Oximetry 98 99 99 03/05/18 15:00 03/05/18 15:30 03/05/18 16:00 Temperature Pulse Rate 80 85 80 Respiratory Rate 12 16 12 Blood Pressure 138/63 152/65 H Pulse Oximetry 99 100 03/05/18 16:01 03/05/18 16:31 03/05/18 17:00 Temperature 98.7 F Pulse Rate 83 80 80 Respiratory Rate 13 13 22 Blood Pressure 143/77 H 136/61 154/86 H Pulse Oximetry 03/05/18 17:10 03/05/18 17:25 03/05/18 17:31 Temperature 98.3 F 98.1 F Pulse Rate 80 80 86 Respiratory Rate 14 22 9 L Blood Pressure 154/86 H 154/86 H 227/157 H Pulse Oximetry 100 03/05/18 17:35 03/05/18 17:38 03/05/18 18:00 Temperature Pulse Rate 82 81 80 Respiratory Rate 8 L 23 15 Blood Pressure 165/70 H 176/70 H Pulse Oximetry 94 L 03/05/18 18:01 03/05/18 18:30 03/05/18 19:00 Temperature Pulse Rate 80 84 84 Respiratory Rate 13 15 29 H Blood Pressure 155/68 H 158/70 H 146/69 H Pulse Oximetry 94 L 95 95 03/05/18 19:30 03/05/18 20:00 03/05/18 20:30 Temperature 98.1 F Pulse Rate 82 82 81 Respiratory Rate 13 18 35 H Blood Pressure 145/62 H 145/66 H 146/67 H Pulse Oximetry 94 L 94 L 95 03/05/18 21:00 03/05/18 21:30 03/05/18 22:00 Temperature Pulse Rate 83 81 84 Respiratory Rate 15 15 12 Blood Pressure 139/65 158/70 H 157/71 H Pulse Oximetry 94 L 94 L 94 L 03/05/18 23:00 03/05/18 23:01 03/05/18 23:56 Temperature Pulse Rate 80 80 82 Respiratory Rate 29 H 27 H 13 Blood Pressure 98/55 L 144/67 H Pulse Oximetry 94 L 94 L 96 03/06/18 00:00 03/06/18 01:00 03/06/18 01:01 Temperature 98.3 F Pulse Rate 80 80 84 Respiratory Rate 14 16 21 Blood Pressure 137/71 124/79 Pulse Oximetry 95 03/06/18 02:00 03/06/18 02:01 03/06/18 03:00 Temperature Pulse Rate 80 86 81 Respiratory Rate 9 L 13 11 L Blood Pressure 91/50 L 117/68 Pulse Oximetry 99 03/06/18 04:00 03/06/18 05:00 03/06/18 06:00 Temperature 98.5 F Pulse Rate 80 80 80 Respiratory Rate 10 L 15 13 Blood Pressure 113/55 L 134/65 144/69 H Pulse Oximetry 97 97 97 03/06/18 07:00 03/06/18 08:00 03/06/18 09:00 Temperature 97.7 F Pulse Rate 80 80 80 Respiratory Rate 11 L 10 L 11 L Blood Pressure 140/66 159/74 H 143/66 H Pulse Oximetry 96 98 96 03/06/18 10:00 03/06/18 11:00 03/06/18 12:00 Temperature 97.4 F L Pulse Rate 81 82 80 Respiratory Rate 12 6 L 11 L Blood Pressure 129/62 140/67 158/71 H Pulse Oximetry 98 97 97 03/06/18 13:00 Temperature Pulse Rate 80 Respiratory Rate 13 Blood Pressure 142/66 H Pulse Oximetry 99 Intake & Output 03/05/18 03/06/18 03/06/18 18:59 06:59 18:59 Intake Total 506 / 506 500 / 500 Output Total 725 / 725 875 / 875 Balance -219 / -219 -375 / -375 Weight 119.9 kg Intake: IV 406 / 406 NS Inj 1,000 ML @ 84 mls/hr IV. 406 / 406 CONT .[id number] [facility] Rx#: [id number] Oral 500 / 500 Anesthesia Amount 100 / 100 Intake (Blood Product) Amt 0 / 0 Rbc As-3 Leukoreduced Unit 0 / 0 [id number] Output: Urine 725 / 725 875 / 875 Other: Date of Last Bowel Movement 03/05/18 03/05/18 03/05/18 # Bowel Movements 3 <Cassy Polanco - Last Filed: 03/06/18 13:57> Results - Labs CBC & Chem 7: 03/06/18 07:00 03/06/18 07:00 Laboratory Results - last 24 hr 03/04/18 03/05/18 03/05/18 08:45 12:27 15:03 WBC RBC Hgb 7.9 L Hct 23.9 L MCV MCH MCHC RDW Plt Count MPV Prelim Diff (Auto) Neut % (Auto) Lymph % (Auto) [place] % (Auto) Eos % (Auto) Baso % (Auto) Neut # (Auto) Lymph # (Auto) [place] # (Auto) Eos # (Auto) Baso # (Auto) WBC Differential Diff Scan Differential Comment Platelet Estimate Platelet Morphology Ovalocytes Sodium Potassium Chloride Carbon Dioxide Anion Gap BUN Creatinine Estimated GFR POC Glucose 309 H Random Glucose Calcium Magnesium Total Bilirubin AST ALT Alkaline Phosphatase Total Protein Albumin MTS Gel Crossmatch See Detail 03/05/18 03/05/18 03/06/18 16:14 17:15 01:11 WBC RBC Hgb Hct MCV MCH MCHC RDW Plt Count MPV Prelim Diff (Auto) Neut % (Auto) Lymph % (Auto) [place] % (Auto) Eos % (Auto) Baso % (Auto) Neut # (Auto) Lymph # (Auto) [place] # (Auto) Eos # (Auto) Baso # (Auto) WBC Differential Diff Scan Differential Comment Platelet Estimate Platelet Morphology Ovalocytes Sodium Potassium Chloride Carbon Dioxide Anion Gap BUN Creatinine Estimated GFR POC Glucose 283 H 272 H Random Glucose Calcium Magnesium Total Bilirubin AST ALT Alkaline Phosphatase Total Protein Albumin MTS Gel Crossmatch See Detail 03/06/18 03/06/18 03/06/18 07:00 07:00 07:15 WBC 3.5 L RBC 3.11 L Hgb 8.4 L Hct 25.9 L MCV 83.1 MCH 27.0 MCHC 32.5 RDW 14.8 Plt Count 80 L MPV 8.7 Prelim Diff (Auto) Slide review pending Neut % (Auto) 69.2 Lymph % (Auto) 15.1 [place] % (Auto) 9.2 H Eos % (Auto) 6.1 H Baso % (Auto) 0.4 Neut # (Auto) 2.4 Lymph # (Auto) 0.5 L [place] # (Auto) 0.3 Eos # (Auto) 0.2 Baso # (Auto) 0.0 WBC Differential . Diff Scan Auto diff confirmed Differential Comment . Platelet Estimate Low L Platelet Morphology Normal Ovalocytes 1+ H Sodium 149 H Potassium 4.0 Chloride 115 H Carbon Dioxide 26.8 Anion Gap 7 BUN 35 H Creatinine 1.24 Estimated GFR 57 L POC Glucose 250 H Random Glucose 220 H Calcium 8.6 Magnesium 2.4 Total Bilirubin 0.9 AST 31 ALT 31 Alkaline Phosphatase 57 Total Protein 5.7 L Albumin 2.7 L MTS Gel Crossmatch <Maida Tobias - Last Filed: 03/06/18 10:04> - Labs CBC & Chem 7: 03/06/18 07:00 03/06/18 07:00 Laboratory Results - last 24 hr 03/04/18 03/05/18 03/05/18 08:45 15:03 16:14 WBC RBC Hgb 7.9 L Hct 23.9 L MCV MCH MCHC RDW Plt Count MPV Prelim Diff (Auto) Neut % (Auto) Lymph % (Auto) [place] % (Auto) Eos % (Auto) Baso % (Auto) Neut # (Auto) Lymph # (Auto) [place] # (Auto) Eos # (Auto) Baso # (Auto) WBC Differential Diff Scan Differential Comment Platelet Estimate Platelet Morphology Ovalocytes Sodium Potassium Chloride Carbon Dioxide Anion Gap BUN Creatinine Estimated GFR POC Glucose Random Glucose Calcium Magnesium Total Bilirubin AST ALT Alkaline Phosphatase Total Protein Albumin MTS Gel Crossmatch See Detail See Detail 03/05/18 03/06/18 03/06/18 17:15 01:11 07:00 WBC 3.5 L RBC 3.11 L Hgb 8.4 L Hct 25.9 L MCV 83.1 MCH 27.0 MCHC 32.5 RDW 14.8 Plt Count 80 L MPV 8.7 Prelim Diff (Auto) Slide review pending Neut % (Auto) 69.2 Lymph % (Auto) 15.1 [place] % (Auto) 9.2 H Eos % (Auto) 6.1 H Baso % (Auto) 0.4 Neut # (Auto) 2.4 Lymph # (Auto) 0.5 L [place] # (Auto) 0.3 Eos # (Auto) 0.2 Baso # (Auto) 0.0 WBC Differential . Diff Scan Auto diff confirmed Differential Comment . Platelet Estimate Low L Platelet Morphology Normal Ovalocytes 1+ H Sodium Potassium Chloride Carbon Dioxide Anion Gap BUN Creatinine Estimated GFR POC Glucose 283 H 272 H Random Glucose Calcium Magnesium Total Bilirubin AST ALT Alkaline Phosphatase Total Protein Albumin MTS Gel Crossmatch 03/06/18 03/06/18 03/06/18 07:00 07:15 13:23 WBC RBC Hgb Hct MCV MCH MCHC RDW Plt Count MPV Prelim Diff (Auto) Neut % (Auto) Lymph % (Auto) [place] % (Auto) Eos % (Auto) Baso % (Auto) Neut # (Auto) Lymph # (Auto) [place] # (Auto) Eos # (Auto) Baso # (Auto) WBC Differential Diff Scan Differential Comment Platelet Estimate Platelet Morphology Ovalocytes Sodium 149 H Potassium 4.0 Chloride 115 H Carbon Dioxide 26.8 Anion Gap 7 BUN 35 H Creatinine 1.24 Estimated GFR 57 L POC Glucose 250 H 372 H Random Glucose 220 H Calcium 8.6 Magnesium 2.4 Total Bilirubin 0.9 AST 31 ALT 31 Alkaline Phosphatase 57 Total Protein 5.7 L Albumin 2.7 L MTS Gel Crossmatch <Cassy Polanco - Last Filed: 03/06/18 13:57> Assessment and Plan (1) GI bleed Status: Acute Code(s): K92.2 - Gastrointestinal hemorrhage, unspecified - Plan GI bleeding-patient awake and alert sitting up in bed, no BM today. Denies any noted bleeding and denies nausea or vomiting. States tolerating liquid diet well. Patient post EGD with ablation. Discussed findings of EGD along with antireflux regimen, the importance of PPI, and the avoidance of NSAIDs. Instructed patient to follow-up with GI for EGD repeat in 1 month. Hemoglobin 8.4 hematocrit 25.9 total bilirubin 0.9 AST 31 ALT 31 alk phos 57. Plan -Full liquid diet as tolerated -Monitor for bleeding -Continue bowel regimen -Monitor labs -Transfuse if needed -Avoidance of NSAIDs -PPI -Patient to follow-up with GI for repeat EGD in 1 month -Supportive care -Further recommendations to follow This patient has been seen by myself in Dr. Polanco and this note is written on his behalf - Attending Attestation <Maida Tobias - Last Filed: 03/06/18 10:04> (1) GI bleed Status: Acute Code(s): K92.2 - Gastrointestinal hemorrhage, unspecified - Plan Seen and examined with [employer], no bleeding reported. Over all feeling better. Advnce diet. Monitor labs. PPI. NO ETOH. Discussed with at the bedside. <Cassy Polanco - Last Filed: 03/06/18 13:57> <Maida Tobias - Last Filed: 03/06/18 10:04> (1) GI bleed Qualifiers: GI bleed type/associated pathology: melena Qualified Code(s): K92.1 - Melena <Cassy Polanco - Last Filed: 03/06/18 13:57> (1) GI bleed Qualifiers: GI bleed type/associated pathology: melena Qualified Code(s): K92.1 - Melena
[2018-03-06] MEDS: Furosemide 20 MG Tablet PO SCH (10:52)
--- NOTE | 2018-03-06 16:22 | ECG ---
Date Performed: 03/05/2018 Time Performed: 10:37:14 PTAGE: 72 years EKG: Accelerated idioventricular rhythm Consider atrial fibrillation --- Suspect arm lead revers al - only aVF, V1-V6 analyzed --- IV conduction defect Extensive ST-T changes may be due to myocardia l ischemia Low QRS voltages in precordial leads Abnormal ECG NO PREVIOUS TRACING DOCTOR: Bronson Pope Interpretating Date/Time 03/06/2018 16:21:16
[2018-03-07] MEDS: Pantoprazole Inj 40 MG Vial IV.PUSH SCH (03:06)
[2018-03-07] MEDS: Chlorhexidine Gluconate 2% 1 Pack (2 Cloths) TOPICAL SCH (03:08)
[2018-03-07] MEDS: Insulin NovoLOG Aspart Correctional Sugar Inj SQ SCH (05:32)
[2018-03-07 08:21] LABS: Alanine Aminotransferase 34 U/L (12-78); Albumin 2.7 g/dL (3.4-5.0); Anion Gap 10 meq/L (5-15); Aspartate Aminotransferase 32 U/L (15-37); Blood Urea Nitrogen 25 mg/dL (7-18); Calcium 8.6 mg/dL (8.5-10.1); Carbon Dioxide 26.6 meq/L (21.0-32.0); Chloride 110 meq/L (98-107); Glomerular Filtration Rate 60 mL/min (>89); Glucose,Random 241 mg/dL (74-106); Magnesium 2.3 mg/dL (1.5-2.5); Potassium 3.8 meq/L (3.5-5.1); Sodium 147 meq/L (136-145)
[2018-03-07 08:22] LABS: Alkaline Phosphatase 58 U/L (45-117); Total Protein 5.8 g/dL (6.4-8.2)
[2018-03-07 08:24] LABS: Baso % (Auto) 0.4 % (0.0-2.0); Eos # (Auto) 0.2 th/mm3 (0.0-0.4); Eos % (Auto) 6.5 % (0.0-4.0); Hematocrit 24.8 % (39.0-51.0); Hemoglobin 8.2 gm/dL (13.0-17.0); Lymph # (Auto) 0.5 th/mm3 (1.0-4.8); Lymph % (Auto) 14.2 % (9.0-44.0); Mean Corpuscular Hemoglobin 27.1 pg (27.0-34.0); Mean Corpuscular Volume 82.1 fL (80.0-100.0); Mean Platelet Volume 8.8 fL (7.0-11.0); Mono # (Auto) 0.3 th/mm3 (0.0-0.9); Neut # (Auto) 2.4 th/mm3 (1.8-7.7); Neut % (Auto) 70.9 % (16.0-70.0); Platelet Count 79 th/mm3 (150-450); Red Blood Count 3.02 mil/mm3 (4.50-5.90); Red Cell Distribution Width 14.3 % (11.6-17.2); White Blood Count 3.4 th/mm3 (4.0-11.0)
[2018-03-07] MEDS: Carvedilol 12.5 MG Tablet PO SCH (08:42)
[2018-03-07] MEDS: Gabapentin 300 MG Capsule PO SCH (08:43)
[2018-03-07] MEDS: Calcium/Vitamin D 250/125 MG Tablet PO SCH (08:43)
[2018-03-07] MEDS: Senna/Docusate Sodium 8.6/50 MG Tablet PO SCH (08:43)
[2018-03-07] MEDS: Furosemide 20 MG Tablet PO SCH (08:43)
[2018-03-07] MEDS: Magnesium Oxide 400 MG Tablet PO SCH (08:43)
--- NOTE | 2018-03-07 10:16 | P.PNGI ---
Subjective Interval history: Pt in bedside chair, at bedside. Formed, brown BM this morning. Denies nausea, vomiting, abdominal pain. Tolerating regular diet. <Jennifer Crisostomo - Last Filed: 03/07/18 10:11> Physical Exam Vital signs: Vital Signs 03/06/18 11:00 03/06/18 12:00 03/06/18 13:00 Temperature 97.4 F L Pulse Rate 82 80 80 Respiratory Rate 6 L 11 L 13 Blood Pressure 140/67 158/71 H 142/66 H Pulse Oximetry 97 97 99 03/06/18 14:00 03/06/18 15:00 03/06/18 16:00 Temperature Pulse Rate 80 80 80 Respiratory Rate 12 10 L 14 Blood Pressure 146/70 H 142/67 H 135/72 Pulse Oximetry 98 98 97 03/06/18 17:00 03/06/18 18:00 03/06/18 19:00 Temperature Pulse Rate 80 82 80 Respiratory Rate 10 L 17 15 Blood Pressure 129/58 L 160/70 H 144/65 H Pulse Oximetry 98 97 99 03/06/18 20:00 03/06/18 21:00 03/06/18 22:00 Temperature 98.2 F Pulse Rate 84 81 81 Respiratory Rate 13 17 12 Blood Pressure 154/72 H 142/93 H 148/65 H Pulse Oximetry 98 98 97 03/06/18 23:00 03/07/18 00:00 03/07/18 01:00 Temperature 98.4 F Pulse Rate 86 80 90 Respiratory Rate 13 12 15 Blood Pressure 139/62 170/78 H Pulse Oximetry 95 96 94 L 03/07/18 01:01 03/07/18 02:00 03/07/18 02:01 Temperature Pulse Rate 80 82 80 Respiratory Rate 11 L 13 10 L Blood Pressure 119/54 L 142/63 H Pulse Oximetry 96 94 L 96 03/07/18 03:00 03/07/18 04:00 03/07/18 05:00 Temperature 98.6 F Pulse Rate 80 80 80 Respiratory Rate 14 12 10 L Blood Pressure 125/65 134/64 138/71 Pulse Oximetry 96 96 97 03/07/18 06:00 03/07/18 06:06 Temperature Pulse Rate 85 87 Respiratory Rate 12 14 Blood Pressure 179/79 H 159/73 H Pulse Oximetry 96 97 Intake & Output 03/06/18 03/07/18 03/07/18 18:59 06:59 18:59 Intake Total 500 / 500 500 / 500 Output Total 1000 / 1000 600 / 600 Balance -500 / -500 -100 / -100 Weight 119 kg Intake: Oral 500 / 500 500 / 500 Output: Urine 1000 / 1000 600 / 600 Other: Date of Last Bowel Movement 03/06/18 03/06/18 # Bowel Movements 1 0 - Constitutional no acute distress - Routine HEENT Exam Head: Present: normocephalic, atraumatic - Routine Respiratory Exam Absent: accessory muscle use - Routine Cardiovascular Exam Present: RRR - Routine Abdominal Exam Present: soft, normoactive bowel sounds. Absent: tenderness, distended - Routine Skin Exam Present: dry, warm - Routine Neurological Exam Present: alert, oriented X3 <Jennifer Crisostomo - Last Filed: 03/07/18 10:11> Vital signs: Vital Signs 03/06/18 14:00 03/06/18 15:00 03/06/18 16:00 Temperature Pulse Rate 80 80 80 Respiratory Rate 12 10 L 14 Blood Pressure 146/70 H 142/67 H 135/72 Pulse Oximetry 98 98 97 03/06/18 17:00 03/06/18 18:00 03/06/18 19:00 Temperature Pulse Rate 80 82 80 Respiratory Rate 10 L 17 15 Blood Pressure 129/58 L 160/70 H 144/65 H Pulse Oximetry 98 97 99 03/06/18 20:00 03/06/18 21:00 03/06/18 22:00 Temperature 98.2 F Pulse Rate 84 81 81 Respiratory Rate 13 17 12 Blood Pressure 154/72 H 142/93 H 148/65 H Pulse Oximetry 98 98 97 03/06/18 23:00 03/07/18 00:00 03/07/18 01:00 Temperature 98.4 F Pulse Rate 86 80 90 Respiratory Rate 13 12 15 Blood Pressure 139/62 170/78 H Pulse Oximetry 95 96 94 L 03/07/18 01:01 03/07/18 02:00 03/07/18 02:01 Temperature Pulse Rate 80 82 80 Respiratory Rate 11 L 13 10 L Blood Pressure 119/54 L 142/63 H Pulse Oximetry 96 94 L 96 03/07/18 03:00 03/07/18 04:00 03/07/18 05:00 Temperature 98.6 F Pulse Rate 80 80 80 Respiratory Rate 14 12 10 L Blood Pressure 125/65 134/64 138/71 Pulse Oximetry 96 96 97 03/07/18 06:00 03/07/18 06:06 03/07/18 07:00 Temperature 98.1 F Pulse Rate 85 87 85 Respiratory Rate 12 14 16 Blood Pressure 179/79 H 159/73 H 179/79 H Pulse Oximetry 96 97 98 03/07/18 08:00 03/07/18 09:00 03/07/18 10:00 Temperature Pulse Rate 84 80 80 Respiratory Rate 16 15 18 Blood Pressure 150/77 H 160/74 H 145/68 H Pulse Oximetry 99 96 98 Intake & Output 03/06/18 03/07/18 03/07/18 18:59 06:59 18:59 Intake Total 500 / 500 500 / 500 Output Total 1000 / 1000 600 / 600 Balance -500 / -500 -100 / -100 Weight 119 kg Intake: Oral 500 / 500 500 / 500 Output: Urine 1000 / 1000 600 / 600 Other: Date of Last Bowel Movement 03/06/18 03/06/18 03/07/18 # Bowel Movements 1 0 <Cassy Polanco - Last Filed: 03/07/18 13:57> Results - Labs CBC & Chem 7: 03/07/18 05:42 03/07/18 05:42 Laboratory Results - last 24 hr 03/06/18 03/06/18 03/06/18 13:23 17:15 23:13 WBC RBC Hgb Hct MCV MCH MCHC RDW Plt Count MPV Prelim Diff (Auto) Neut % (Auto) Lymph % (Auto) [place] % (Auto) Eos % (Auto) Baso % (Auto) Neut # (Auto) Lymph # (Auto) [place] # (Auto) Eos # (Auto) Baso # (Auto) Differential Comment Sodium Potassium Chloride Carbon Dioxide Anion Gap BUN Creatinine Estimated GFR POC Glucose 372 H 335 H 298 H Random Glucose Calcium Magnesium Total Bilirubin AST ALT Alkaline Phosphatase Total Protein Albumin 03/07/18 03/07/18 03/07/18 05:27 05:42 05:42 WBC 3.4 L RBC 3.02 L Hgb 8.2 L Hct 24.8 L MCV 82.1 MCH 27.1 MCHC 33.0 RDW 14.3 Plt Count 79 L MPV 8.8 Prelim Diff (Auto) Slide review pending Neut % (Auto) 70.9 H Lymph % (Auto) 14.2 [place] % (Auto) 8.0 Eos % (Auto) 6.5 H Baso % (Auto) 0.4 Neut # (Auto) 2.4 Lymph # (Auto) 0.5 L [place] # (Auto) 0.3 Eos # (Auto) 0.2 Baso # (Auto) 0.0 Differential Comment . Sodium 147 H Potassium 3.8 Chloride 110 H Carbon Dioxide 26.6 Anion Gap 10 BUN 25 H Creatinine 1.20 Estimated GFR 60 L POC Glucose 276 H Random Glucose 241 H Calcium 8.6 Magnesium 2.3 Total Bilirubin 0.7 AST 32 ALT 34 Alkaline Phosphatase 58 Total Protein 5.8 L Albumin 2.7 L <Jennifer Crisostomo - Last Filed: 03/07/18 10:11> - Labs CBC & Chem 7: 03/07/18 05:42 03/07/18 05:42 Laboratory Results - last 24 hr 03/06/18 03/06/18 03/07/18 17:15 23:13 05:27 WBC RBC Hgb Hct MCV MCH MCHC RDW Plt Count MPV Prelim Diff (Auto) Neut % (Auto) Lymph % (Auto) [place] % (Auto) Eos % (Auto) Baso % (Auto) Neut # (Auto) Lymph # (Auto) [place] # (Auto) Eos # (Auto) Baso # (Auto) WBC Differential Diff Scan Differential Comment Ovalocytes Sodium Potassium Chloride Carbon Dioxide Anion Gap BUN Creatinine Estimated GFR POC Glucose 335 H 298 H 276 H Random Glucose Calcium Magnesium Total Bilirubin AST ALT Alkaline Phosphatase Total Protein Albumin 03/07/18 03/07/18 05:42 05:42 WBC 3.4 L RBC 3.02 L Hgb 8.2 L Hct 24.8 L MCV 82.1 MCH 27.1 MCHC 33.0 RDW 14.3 Plt Count 79 L MPV 8.8 Prelim Diff (Auto) Slide review pending Neut % (Auto) 70.9 H Lymph % (Auto) 14.2 [place] % (Auto) 8.0 Eos % (Auto) 6.5 H Baso % (Auto) 0.4 Neut # (Auto) 2.4 Lymph # (Auto) 0.5 L [place] # (Auto) 0.3 Eos # (Auto) 0.2 Baso # (Auto) 0.0 WBC Differential . Diff Scan Auto diff confirmed Differential Comment . Ovalocytes 1+ H Sodium 147 H Potassium 3.8 Chloride 110 H Carbon Dioxide 26.6 Anion Gap 10 BUN 25 H Creatinine 1.20 Estimated GFR 60 L POC Glucose Random Glucose 241 H Calcium 8.6 Magnesium 2.3 Total Bilirubin 0.7 AST 32 ALT 34 Alkaline Phosphatase 58 Total Protein 5.8 L Albumin 2.7 L <Cassy Polanco - Last Filed: 03/07/18 13:57> Assessment and Plan (1) GI bleed Status: Acute Code(s): K92.2 - Gastrointestinal hemorrhage, unspecified - Plan Assessment: GI bleeding-Black, tarry stools on admission in the setting of anticoagulation with Eliquis for chronic a-fib. EGD (03/05) There was [place] Class A esophagitis noted. Portal hypertensive gastropathy was found in the gastric body and gastric fundus. Two ulcers ranging between 3-7mm in size were found in the gastric antrum and gastric body; Argon plasma coagulation was applied to the sites; with complete hemostasis achieved. Duodenal inflammation was found in the bulb and second portion of the duodenum (03/07) H/H stable. Formed brown stool. No nausea, vomiting, abdominal pain. Tolerating regular diet Plan: OK to resume eliquis from a GI standpoint Protonix Repeat EGD in one month ETOH cessation Our service will sign off Have pt follow up with GI after DC Pt has been seen and examined by myself and Dr. Polanco and this note is written on his behalf <Jennifer Crisostomo - Last Filed: 03/07/18 10:11> (1) GI bleed Status: Acute Code(s): K92.2 - Gastrointestinal hemorrhage, unspecified - Plan Seen and examined with [employer], no bleeding, tolerating po diet. DC home with GI fu. Thank you <Cassy Polanco - Last Filed: 03/07/18 13:57> <Cassy Polanco - Last Filed: 03/07/18 13:57> (1) GI bleed Qualifiers: GI bleed type/associated pathology: [email or web address] Qualified Code(s): K92.1 - Lindsay
--- NOTE | 2018-03-07 10:18 | P.PN ---
Subjective Interval history: Clinical Data Associate Notes: 72yM with history of prior kidney failure of unknown etiology who presented with sudden-onset fatigue and 2 dark tarry bowel movements. found to be anemic, hypotensive, tachycardic in the ER, given 1 unit prbc. Denies abd, N/V, fever, chills, chest pain, shortness of breath. Takes Eliquis for h/o afib. Denies h/o NSAID use. 03/05- Patient taken for emergent EGD overnight, found to have esophagitis and large blood clot in stomach but no active bleeding. Continues to have melanotic stools overnight. Plan for repeat EGD today. Patient complains of sore throat from NGT. 03/06- Patient went for repeat EGD yesterday, found to have esophagitis, duodenitis, and 2 gastric ulcers which were ablated, received 1 U PRBCs post- procedure and has remained stable overnight. The patient has no complaints and reports that he is still having some formed black stools, but much fewer than yesterday. Hospitalist Notes: 03/07: GI specialist following today, EGD (03/05) There was LA Class A esophagitis noted. Portal hypertensive gastropathy was found in the gastric body and gastric fundus. Two ulcers ranging between 3-7mm in size were found in the gastric antrum and gastric body; Argon plasma coagulation was applied to the sites; with complete hemostasis achieved. Duodenal inflammation was found in the bulb and second portion of the duodenum, Resume Eliquis, continue PPIs, Repeat EGD in one month, stop ETOH, signed off the case. Physical Exam Vital signs: Vital Signs 03/06/18 11:00 03/06/18 12:00 03/06/18 13:00 Temperature 97.4 F L Pulse Rate 82 80 80 Respiratory Rate 6 L 11 L 13 Blood Pressure 140/67 158/71 H 142/66 H Pulse Oximetry 97 97 99 03/06/18 14:00 03/06/18 15:00 03/06/18 16:00 Temperature Pulse Rate 80 80 80 Respiratory Rate 12 10 L 14 Blood Pressure 146/70 H 142/67 H 135/72 Pulse Oximetry 98 98 97 03/06/18 17:00 03/06/18 18:00 03/06/18 19:00 Temperature Pulse Rate 80 82 80 Respiratory Rate 10 L 17 15 Blood Pressure 129/58 L 160/70 H 144/65 H Pulse Oximetry 98 97 99 03/06/18 20:00 03/06/18 21:00 03/06/18 22:00 Temperature 98.2 F Pulse Rate 84 81 81 Respiratory Rate 13 17 12 Blood Pressure 154/72 H 142/93 H 148/65 H Pulse Oximetry 98 98 97 03/06/18 23:00 03/07/18 00:00 03/07/18 01:00 Temperature 98.4 F Pulse Rate 86 80 90 Respiratory Rate 13 12 15 Blood Pressure 139/62 170/78 H Pulse Oximetry 95 96 94 L 03/07/18 01:01 03/07/18 02:00 03/07/18 02:01 Temperature Pulse Rate 80 82 80 Respiratory Rate 11 L 13 10 L Blood Pressure 119/54 L 142/63 H Pulse Oximetry 96 94 L 96 03/07/18 03:00 03/07/18 04:00 03/07/18 05:00 Temperature 98.6 F Pulse Rate 80 80 80 Respiratory Rate 14 12 10 L Blood Pressure 125/65 134/64 138/71 Pulse Oximetry 96 96 97 03/07/18 06:00 03/07/18 06:06 Temperature Pulse Rate 85 87 Respiratory Rate 12 14 Blood Pressure 179/79 H 159/73 H Pulse Oximetry 96 97 Intake & Output 03/06/18 03/07/18 03/07/18 18:59 06:59 18:59 Intake Total 500 / 500 500 / 500 Output Total 1000 / 1000 600 / 600 Balance -500 / -500 -100 / -100 Weight 119 kg Intake: Oral 500 / 500 500 / 500 Output: Urine 1000 / 1000 600 / 600 Other: Date of Last Bowel Movement 03/06/18 03/06/18 # Bowel Movements 1 0 Narrative: GENERAL: Elderly male, lying in bed, in mild distress HEENT: Normocephalic. Atraumatic. Pupils equal, round, reactive, conjugate. Mucous membranes are moist NECK: Trachea is midline. There is no JVD. CHEST: Mildly tachypneic. Equal chest rise. Nasal cannula oxygen. CARDIOVASCULAR: Normal rate, regular rhythm. Borderline hypotensive with systolic blood pressure 97. ABDOMEN: Soft, nontender, nondistended. No guarding. MUSCULOSKELETAL: Pulses 2+. No peripheral edema. NEUROLOGICAL: RASS 0. CAM -. Follows commands in all 4 extremities. Results - Labs CBC & Chem 7: 03/07/18 05:42 03/07/18 05:42 Laboratory Results - last 24 hr 03/06/18 03/06/18 03/06/18 13:23 17:15 23:13 WBC RBC Hgb Hct MCV MCH MCHC RDW Plt Count MPV Prelim Diff (Auto) Neut % (Auto) Lymph % (Auto) [place] % (Auto) Eos % (Auto) Baso % (Auto) Neut # (Auto) Lymph # (Auto) [place] # (Auto) Eos # (Auto) Baso # (Auto) Differential Comment Sodium Potassium Chloride Carbon Dioxide Anion Gap BUN Creatinine Estimated GFR POC Glucose 372 H 335 H 298 H Random Glucose Calcium Magnesium Total Bilirubin AST ALT Alkaline Phosphatase Total Protein Albumin 03/07/18 03/07/18 03/07/18 05:27 05:42 05:42 WBC 3.4 L RBC 3.02 L Hgb 8.2 L Hct 24.8 L MCV 82.1 MCH 27.1 MCHC 33.0 RDW 14.3 Plt Count 79 L MPV 8.8 Prelim Diff (Auto) Slide review pending Neut % (Auto) 70.9 H Lymph % (Auto) 14.2 [place] % (Auto) 8.0 Eos % (Auto) 6.5 H Baso % (Auto) 0.4 Neut # (Auto) 2.4 Lymph # (Auto) 0.5 L [place] # (Auto) 0.3 Eos # (Auto) 0.2 Baso # (Auto) 0.0 Differential Comment . Sodium 147 H Potassium 3.8 Chloride 110 H Carbon Dioxide 26.6 Anion Gap 10 BUN 25 H Creatinine 1.20 Estimated GFR 60 L POC Glucose 276 H Random Glucose 241 H Calcium 8.6 Magnesium 2.3 Total Bilirubin 0.7 AST 32 ALT 34 Alkaline Phosphatase 58 Total Protein 5.8 L Albumin 2.7 L Assessment and Plan - Plan This is a pleasant 72 y/o Male with Gastric Ulcer x 2, Upper GI bleed. -Active Upper GI bleed, Following Hemoglobin, he will need to re start his medicines Eliquis/Plavix Continue PPIs, Diet advanced by GI specialist, Clear for discharge by GI specialist. -Atrial Fibrillation Stable Vital signs on hold ARBs and continue Coreg on half home dose, continue Statins -CHF unknown type, Unknown EF, low dose Lasix he takes 80 mg daily at home, was given in ICU 20 mg daily -Anemia secondary to acute blood loss requiring blood transfusion -Acute Kidney Injury unknown baseline Prophylaxis: SCDs, PPI Start SQH for DVT prophylaxis Code Status: Full code Discussed Condition With: Patient and Nurse. and patient's in the room Discharge Planning: okay to discharge now by GI specialist.
[2018-03-07 10:19] VITALS: PULSE 80
[2018-03-07 10:24] VITALS: BP 145/68; RESP 18; TEMP 98.1; O2SAT 98
[2018-03-07 13:15] LABS: Ovalocytes 1+
--- NOTE | 2018-03-07 17:55 | P.DS ---
Date of admission: 03/04/18 01:03 Primary care physician: Fadia Huang MD Attending physician on discharge: Nav Jennings Anticipated date of discharge: 03/07/18 Brief History from admission: 72yM with history of prior kidney failure of unknown etiology who presented with sudden onset fatigue and 2 dark tarry bowel movements. found to be anemic, hypotensive, tachycardic in the ER. given 1 unit prbc. denies abd, n/v. denies fever, chills, chest pain, shortness of breath. takes eliquis for h/o afib. no h /o NSAID use. DS: Diagnosis - Discharge Diagnosis (1) GI bleed Status: Acute DS: Medications - Discharge Medications Prescriptions: furosemide [Lasix] 40 mg PO DAILY #30 tab pantoprazole [Protonix] 40 mg PO BID #60 tab sucralfate [Carafate] 1 g PO Q6H #120 tab DS: Summary Hospital Course: Fixed Income Director Notes: 72yM with history of prior kidney failure of unknown etiology who presented with sudden-onset fatigue and 2 dark tarry bowel movements. found to be anemic, hypotensive, tachycardic in the ER, given 1 unit prbc. Denies abd, N/V, fever, chills, chest pain, shortness of breath. Takes Eliquis for h/o afib. Denies h/o NSAID use. 03/05- Patient taken for emergent EGD overnight, found to have esophagitis and large blood clot in stomach but no active bleeding. Continues to have melanotic stools overnight. Plan for repeat EGD today. Patient complains of sore throat from NGT. 03/06- Patient went for repeat EGD yesterday, found to have esophagitis, duodenitis, and 2 gastric ulcers which were ablated, received 1 U PRBCs post- procedure and has remained stable overnight. The patient has no complaints and reports that he is still having some formed black stools, but much fewer than yesterday. Hospitalist Notes: 03/07: GI specialist following today, EGD (03/05) There was LA Class A esophagitis noted. Portal hypertensive gastropathy was found in the gastric body and gastric fundus. Two ulcers ranging between 3-7mm in size were found in the gastric antrum and gastric body; Argon plasma coagulation was applied to the sites; with complete hemostasis achieved. Duodenal inflammation was found in the bulb and second portion of the duodenum, Resume Eliquis, continue PPIs, Repeat EGD in one month, stop ETOH, signed off the case. Physical Exam Vital signs: Vital Signs 03/06/18 11:00 03/06/18 12:00 03/06/18 13:00 Temperature 97.4 F L Pulse Rate 82 80 80 Respiratory Rate 6 L 11 L 13 Blood Pressure 140/67 158/71 H 142/66 H Pulse Oximetry 97 97 99 03/06/18 14:00 03/06/18 15:00 03/06/18 16:00 Temperature Pulse Rate 80 80 80 Respiratory Rate 12 10 L 14 Blood Pressure 146/70 H 142/67 H 135/72 Pulse Oximetry 98 98 97 03/06/18 17:00 03/06/18 18:00 03/06/18 19:00 Temperature Pulse Rate 80 82 80 Respiratory Rate 10 L 17 15 Blood Pressure 129/58 L 160/70 H 144/65 H Pulse Oximetry 98 97 99 03/06/18 20:00 03/06/18 21:00 03/06/18 22:00 Temperature 98.2 F Pulse Rate 84 81 81 Respiratory Rate 13 17 12 Blood Pressure 154/72 H 142/93 H 148/65 H Pulse Oximetry 98 98 97 03/06/18 23:00 03/07/18 00:00 03/07/18 01:00 Temperature 98.4 F Pulse Rate 86 80 90 Respiratory Rate 13 12 15 Blood Pressure 139/62 170/78 H Pulse Oximetry 95 96 94 L 03/07/18 01:01 03/07/18 02:00 03/07/18 02:01 Temperature Pulse Rate 80 82 80 Respiratory Rate 11 L 13 10 L Blood Pressure 119/54 L 142/63 H Pulse Oximetry 96 94 L 96 03/07/18 03:00 03/07/18 04:00 03/07/18 05:00 Temperature 98.6 F Pulse Rate 80 80 80 Respiratory Rate 14 12 10 L Blood Pressure 125/65 134/64 138/71 Pulse Oximetry 96 96 97 03/07/18 06:00 03/07/18 06:06 Temperature Pulse Rate 85 87 Respiratory Rate 12 14 Blood Pressure 179/79 H 159/73 H Pulse Oximetry 96 97 Intake & Output 03/06/18 03/07/18 03/07/18 18:59 06:59 18:59 Intake Total 500 / 500 500 / 500 Output Total 1000 / 1000 600 / 600 Balance -500 / -500 -100 / -100 Weight 119 kg Intake: Oral 500 / 500 500 / 500 Output: Urine 1000 / 1000 600 / 600 Other: Date of Last Bowel Movement 03/06/18 03/06/18 # Bowel Movements 1 0 Results - Labs CBC & Chem 7: 03/07/18 05:42 03/07/18 05:42 Laboratory Results - last 24 hr 03/06/18 03/06/18 03/06/18 13:23 17:15 23:13 WBC RBC Hgb Hct MCV MCH MCHC RDW Plt Count MPV Prelim Diff (Auto) Neut % (Auto) Lymph % (Auto) Major % (Auto) Eos % (Auto) Baso % (Auto) Neut # (Auto) Lymph # (Auto) Major # (Auto) Eos # (Auto) Baso # (Auto) Differential Comment Sodium Potassium Chloride Carbon Dioxide Anion Gap BUN Creatinine Estimated GFR POC Glucose 372 H 335 H 298 H Random Glucose Calcium Magnesium Total Bilirubin AST ALT Alkaline Phosphatase Total Protein Albumin 03/07/18 03/07/18 03/07/18 05:27 05:42 05:42 WBC 3.4 L RBC 3.02 L Hgb 8.2 L Hct 24.8 L MCV 82.1 MCH 27.1 MCHC 33.0 RDW 14.3 Plt Count 79 L MPV 8.8 Prelim Diff (Auto) Slide review pending Neut % (Auto) 70.9 H Lymph % (Auto) 14.2 Major % (Auto) 8.0 Eos % (Auto) 6.5 H Baso % (Auto) 0.4 Neut # (Auto) 2.4 Lymph # (Auto) 0.5 L Major # (Auto) 0.3 Eos # (Auto) 0.2 Baso # (Auto) 0.0 Differential Comment . Sodium 147 H Potassium 3.8 Chloride 110 H Carbon Dioxide 26.6 Anion Gap 10 BUN 25 H Creatinine 1.20 Estimated GFR 60 L POC Glucose 276 H Random Glucose 241 H Calcium 8.6 Magnesium 2.3 Total Bilirubin 0.7 AST 32 ALT 34 Alkaline Phosphatase 58 Total Protein 5.8 L Albumin 2.7 L Assessment and Plan - Plan This is a pleasant 72 y/o Male with Gastric Ulcer x 2, Upper GI bleed. -Active Upper GI bleed, Following Hemoglobin, he will need to re start his medicines Eliquis/Plavix Continue PPIs, Diet advanced by GI specialist, Clear for discharge by GI specialist. EGD (03/05) There was LA Class A esophagitis noted. Portal hypertensive gastropathy was found in the gastric body and gastric fundus. Two ulcers ranging between 3-7mm in size were found in the gastric antrum and gastric body; Argon plasma coagulation was applied to the sites; with complete hemostasis achieved. Duodenal inflammation was found in the bulb and second portion of the duodenum, Resume Eliquis, continue PPIs, Repeat EGD in one month, stop ETOH, signed off the case. -Atrial Fibrillation Stable Vital signs on hold ARBs and continue Coreg on half home dose, continue Statins -CHF unknown type, Unknown EF, low dose Lasix he takes 80 mg daily at home, was given in ICU 20 mg daily -Anemia secondary to acute blood loss requiring blood transfusion -Acute Kidney Injury unknown baseline Prophylaxis: SCDs, PPI Start SQH for DVT prophylaxis Code Status: Full code Discussed Condition With: Patient and Nurse. and patient's in the room Discharge Planning: okay to discharge now by GI specialist. - Time Spent with Patient Total time spent providing and/or coordinating discharge services: Less than 30 minutes - Quality: VTE Deep Vein Thrombosis/Pulmonary Embolism Present on Admission: No Exam Vital signs: Vital Signs 03/06/18 18:00 03/06/18 19:00 03/06/18 20:00 Temperature 98.2 F Pulse Rate 82 80 84 Respiratory Rate 17 15 13 Blood Pressure 160/70 H 144/65 H 154/72 H Pulse Oximetry 97 99 98 03/06/18 21:00 03/06/18 22:00 03/06/18 23:00 Temperature Pulse Rate 81 81 86 Respiratory Rate 17 12 13 Blood Pressure 142/93 H 148/65 H 139/62 Pulse Oximetry 98 97 95 03/07/18 00:00 03/07/18 01:00 03/07/18 01:01 Temperature 98.4 F Pulse Rate 80 90 80 Respiratory Rate 12 15 11 L Blood Pressure 170/78 H 119/54 L Pulse Oximetry 96 94 L 96 03/07/18 02:00 03/07/18 02:01 03/07/18 03:00 Temperature Pulse Rate 82 80 80 Respiratory Rate 13 10 L 14 Blood Pressure 142/63 H 125/65 Pulse Oximetry 94 L 96 96 03/07/18 04:00 03/07/18 05:00 03/07/18 06:00 Temperature 98.6 F Pulse Rate 80 80 85 Respiratory Rate 12 10 L 12 Blood Pressure 134/64 138/71 179/79 H Pulse Oximetry 96 97 96 03/07/18 06:06 03/07/18 07:00 03/07/18 08:00 Temperature 98.1 F Pulse Rate 87 85 84 Respiratory Rate 14 16 16 Blood Pressure 159/73 H 179/79 H 150/77 H Pulse Oximetry 97 98 99 03/07/18 09:00 03/07/18 10:00 Temperature Pulse Rate 80 80 Respiratory Rate 15 18 Blood Pressure 160/74 H 145/68 H Pulse Oximetry 96 98 Intake & Output 03/06/18 03/07/18 03/07/18 18:59 06:59 18:59 Intake Total 500 / 500 500 / 500 Output Total 1000 / 1000 600 / 600 Balance -500 / -500 -100 / -100 Weight 119 kg Intake: Oral 500 / 500 500 / 500 Output: Urine 1000 / 1000 600 / 600 Other: Date of Last Bowel Movement 03/06/18 03/06/18 03/07/18 # Bowel Movements 1 0 Narrative: GENERAL: Elderly male, lying in bed, in mild distress HEENT: Normocephalic. Atraumatic. Pupils equal, round, reactive, conjugate. Mucous membranes are moist NECK: Trachea is midline. There is no JVD. CHEST: Mildly tachypneic. Equal chest rise. Nasal cannula oxygen. CARDIOVASCULAR: Normal rate, regular rhythm. Borderline hypotensive with systolic blood pressure 97. ABDOMEN: Soft, nontender, nondistended. No guarding. MUSCULOSKELETAL: Pulses 2+. No peripheral edema. NEUROLOGICAL: RASS 0. CAM -. Follows commands in all 4 extremities. Results Procedures completed during hospitalization: EGD (03/05) There was LA Class A esophagitis noted. Portal hypertensive gastropathy was found in the gastric body and gastric fundus. Two ulcers ranging between 3-7mm in size were found in the gastric antrum and gastric body; Argon plasma coagulation was applied to the sites; with complete hemostasis achieved. Duodenal inflammation was found in the bulb and second portion of the duodenum, Resume Eliquis, continue PPIs, Repeat EGD in one month, stop ETOH, signed off the case. Labs on day of discharge: Labs from last 24 hours 03/07/18 03/07/18 03/07/18 05:42 05:42 05:27 WBC 3.4 L RBC 3.02 L Hgb 8.2 L Hct 24.8 L MCV 82.1 MCH 27.1 MCHC 33.0 RDW 14.3 Plt Count 79 L MPV 8.8 Prelim Diff (Auto) Slide review pending Neut % (Auto) 70.9 H Lymph % (Auto) 14.2 Major % (Auto) 8.0 Eos % (Auto) 6.5 H Baso % (Auto) 0.4 Neut # (Auto) 2.4 Lymph # (Auto) 0.5 L Major # (Auto) 0.3 Eos # (Auto) 0.2 Baso # (Auto) 0.0 WBC Differential . Diff Scan Auto diff confirmed Differential Comment . Ovalocytes 1+ H Sodium 147 H Potassium 3.8 Chloride 110 H Carbon Dioxide 26.6 Anion Gap 10 BUN 25 H Creatinine 1.20 Estimated GFR 60 L POC Glucose 276 H Random Glucose 241 H Calcium 8.6 Magnesium 2.3 Total Bilirubin 0.7 AST 32 ALT 34 Alkaline Phosphatase 58 Total Protein 5.8 L Albumin 2.7 L 03/06/18 23:13 WBC RBC Hgb Hct MCV MCH MCHC RDW Plt Count MPV Prelim Diff (Auto) Neut % (Auto) Lymph % (Auto) Major % (Auto) Eos % (Auto) Baso % (Auto) Neut # (Auto) Lymph # (Auto) Major # (Auto) Eos # (Auto) Baso # (Auto) WBC Differential Diff Scan Differential Comment Ovalocytes Sodium Potassium Chloride Carbon Dioxide Anion Gap BUN Creatinine Estimated GFR POC Glucose 298 H Random Glucose Calcium Magnesium Total Bilirubin AST ALT Alkaline Phosphatase Total Protein Albumin Discharge Plan - Discharge Disposition Patient Disposition: 01 Discharge Home - Discharge Condition Condition: Stable - Discharge Order Discharge Orders: Discharge Order (Routine); Ordered 03/07/18 Ordered By: Nav Jennings - Discharge Details Anticipated Discharge Date: 03/07/18 Discharge Comment: Follow up with PCP in three days - Physicians Team Primary Care Provider: Fadia Huang Attending Provider: Nav Jennings Other Providers: Cassy Polanco MD ; [employer]
== END 2018-03-07 11:40 | disposition home or self-care (01) ==
LOC: PHED 22:14 → PHEDA 03-04 01:03 → HIMC 03-04 05:50
PROVIDERS: ADMIT Internal Medicine; ATTEND Internal Medicine
PROC: PANENDO (2018-03-04 11:05)